=== PATIENT | male | born 1955 | race Caucasian/White ===

== ENCOUNTER → 2019-03-26 | Outpatient (CLI) | payer MEDICARE, MEDICAID ==
--- NOTE | 2019-03-26 14:20 | Diagnostic Imaging Report ---
EXAMINATION: Magnetic resonance imaging of the left knee without intravenous contrast DATE: March 26, 2019. COMPARISON: None. INDICATION: 63-year-old male, left knee pain. TECHNIQUE: Multiplanar, multisequence non contrast enhanced MR imaging was accomplished. FINDINGS: MENISCI: There is blunting of the free edge of the posterior horn of the medial meniscus. This potentially could reflect prior partial meniscectomy changes and/or a free edge tear. Recommend correlation with past surgical history. The additional components of the medial meniscus are intact. There is no parameniscal cyst. There is no medial meniscal extrusion. The lateral meniscus is intact. LIGAMENTS AND TENDONS: The anterior and posterior cruciate ligaments are intact. The medial collateral ligament is intact. The iliotibial band, mid third lateral capsular ligament, fibular collateral ligament, biceps femoris tendon and conjoined tendon are intact. The quadriceps tendon and patella ligament are intact. JOINT: There is mild superficial irregularity of the cartilage of the medial and lateral patellar facets. There is mild generalized thinning of the cartilage of the medial compartment. There is a [id number]-[id number] knee joint effusion without identified intra-articular body or prominent synovitis. BONE: There is unremarkable bone marrow signal. Specifically, negative for fracture, osteomyelitis, osteonecrosis, or marrow replacing process. BURSAE AND SOFT TISSUES: There is no Cabezas's cyst. There is nonspecific predominantly anterior, medial, and lateral subcutaneous edema. IMPRESSION: 1. Blunting of the free edge of the posterior horn of the medial meniscus which may potentially reflect prior partial meniscectomy changes and/or free edge tear. Recommend correlation with past surgical history. Additional components of the medial meniscus are intact. There is no parameniscal cyst. There is no medial meniscal extrusion. 2. Intact lateral meniscus. 3. Intact anterior and posterior cruciate ligaments. Additional ligaments and tendons are intact. 4. No acute fracture, bone contusion, or evidence of osteonecrosis. Dictated by: Dictated on workstation # [id number]
== END ==
LOC: RAD 12:04
PROVIDERS: ATTEND Nurse Practitioner
DX: M23.322 Other meniscus derangements, posterior horn of medial meniscus, left knee (principal)
CPT/HCPCS: 73721

== ENCOUNTER 2020-01-30 05:34 | Outpatient (CLI) | payer MEDICARE, MEDICAID ==
[~2020-01-30] VITALS: Ht 180.3 cm; Wt 109.1 kg
[2020-01-30] MEDS ORDERED: PROP80TA3 PO (13:14)
[2020-01-30] MEDS ORDERED: QUIN40TA14 PO (13:14)
[2020-01-30] MEDS ORDERED: VENL100T2 PO (13:14)
[2020-01-30] MEDS ORDERED: BUPR300T43 PO (13:14)
[2020-01-30] MEDS ORDERED: ASPI-999 PO (13:14)
[2020-01-30] MEDS ORDERED: BREX3TAB PO (13:14)
[2020-01-30] MEDS ORDERED: BUPR-42 PO (13:14)
[2020-02-04] MEDS ORDERED: ZOLP5TAB PO (08:41)
[2020-02-06] MEDS ORDERED: HYDR-4226 PO (09:54)
== END 2020-01-30 13:32 ==
LOC: PREOP 05:34
PROVIDERS: ATTEND Surgery
DX: Z01.818 Encounter for other preprocedural examination (principal)

== ENCOUNTER 2020-02-06 07:40 | Day surgery (SDC) | payer MEDICARE, MEDICAID ==
[~2020-02-06] VITALS: Ht 180 cm; Wt 109.1 kg
[2020-02-06] VITALS (9 sets, daily range): BP systolic 108–154; BP diastolic 43–94
[~2020-02-06 07:40] MED LIST: ASPI-999 PO; BREX3TAB PO; BUPR-42 PO; BUPR300T43 PO; PROP80TA3 PO; QUIN40TA14 PO; VENL100T2 PO; ZOLP5TAB PO
[2020-02-06] MEDS ORDERED: LACTATED RINGERS 1,000 ML IV PRN (07:50)
[2020-02-06] MEDS ORDERED: ceFAZolin INJECTION 1,000 MG in WATER (STERILE) FOR INJECTION 10 ML IV ONE (08:00)
--- NOTE | 2020-02-06 08:10 | Progress Note-Pre Operative ---
Pre-Operative Progress Note H&P Reviewed The H&P was reviewed, patient examined and no changes noted. Time Seen by Provider: 08:06 Date H&P Reviewed: Feb 06, 2020 Time H&P Reviewed: 08:07 Pre-Operative Diagnosis: left breast skin mass, side marked JUDSON CAREY DO Feb 06, 2020 08:10
[2020-02-06] MEDS ORDERED: PROPOFOL INJECTION 50 ML IV ONE (08:52)
[2020-02-06] MEDS ORDERED: BUP/EPI 0.25% 1:200,000 (MARCAINE) 30 ML VIAL ONE (08:53)
[2020-02-06] MEDS ORDERED: fentaNYL INJECTION 100 MCG/2 ML AMP ONE (08:53)
[2020-02-06] MEDS ORDERED: MIDAZOLAM 2 MG/2 ML (VERSED) VIAL ONE (08:53)
[2020-02-06] MEDS ORDERED: morphine INJ 10 MG/ML 1ML (SYR OR VIAL) IVP ONE (09:30)
[2020-02-06] MEDS ORDERED: ONDANSETRON 4 MG/2 ML (SDV) Z0FRAN IVP PRN (09:30)
[2020-02-06] MEDS ORDERED: MEPERIDINE (DEMEROL) INJ 50 MG/ML IVP ONE (09:30)
[2020-02-06] MEDS ORDERED: fentaNYL INJECTION 100 MCG/2 ML AMP IVP ONE (09:30)
[2020-02-06] MEDS ORDERED: HYDR-4226 PO (09:54)
--- NOTE | 2020-02-06 09:54 | Progress Note-Post Operative ---
Post-Operative Progess Note Surgeon (s)/Explosives Mixer Operator (s) Surgeon JUDSON CAREY DO Explosives Mixer Operator: AYLIN Ogden Pre-Operative Diagnosis left breast skin mass, side marked Post-Operative Diagnosis same pending path Procedure & Operative Findings Date of Procedure 02/06/20 Procedure Performed/Findings Exc of Left breast skin lesion, 9 x 3cm with undermining for advancement flap Anesthesia Type GET Estimated Blood Loss Estimated blood loss (mL): scant Specimens/Packing Specimens Removed Left breast skin mass JUDSON CAREY DO Feb 06, 2020 09:53
--- NOTE | 2020-02-06 09:55 | Discharge Inst-Surgical ---
Discharge Inst-Surgical Depart Medication/Instructions New, Converted or Re-Newed RX: RX Given to Pt/Family Patient Instructions Follow up Appt: Make appointment for 1 week. [phone] Instructions: No strenuous activity. May shower in 24 hours, no tub bath or soaking. Use incentive spirometer at home as directed. No Smoking Skin/Wound Care: May remove bandages in am. You need to leave the Dermabond on incision it will fall off on it's own. Symptoms to Report: Appetite Changes, Extremity Discoloration, Numbness/Tingling, Swelling Increased, Bleeding Excessive, Eyesight Changes, Pain Increased, Urine Color Corin nge, Constipation(Persistent), Fever over 101 degree F, Pain/Pressure in chest, Urinating Difficulty, Cough Up/Vomit Blood, Heart Beat Irreg/Pounding, Pain/Pressure in jaw, Cramps in feet or legs, Lightheadedness, Pain/Pressure in shoulder, Diarrhea(Persistent), Memory Changes Suddenly, Questions/Concerns, Weight gain consecutive days, Dizziness/Fainting, Nausea/Vomiting, Shortness of Breath, Weight gain over 2 pounds If questions or concerns contact your physician Or seek help at emergency department. Activity Activity as Tolerated: Yes Activity Instructions: Avoid Stress to Incision Driving Instructions: No Driving/Refer to Dr. Solo Discharge Diet: No Restrictions Diet After 24 Hours: Clear Liquid if Nauseous If Any Problems/Questions/Issu: Contact Your Physician Skin/Wound Care Infection Signs and Symptoms: Increased Redness, Foul Odor of Wound, Increased Drainage, Skin Itchy or Has a Rash, Increased Swelling, Temperature Above 101 F Bathing Instructions: Shower Stitches/[place]/Dermabond Dis: Dermabond Ice Pack: Ice On and Off Site (as needed for pain) JUDSON CAREY DO Feb 06, 2020 09:55
[2020-02-06] MEDS ORDERED: ATROPINE INJ 0.4 MG/ML SDV ONE (10:00)
[2020-02-06] MEDS ORDERED: SUCCINYLCHOLINE INJ 100 MG/5 ML SYR/VIAL ONE (10:00)
[2020-02-06] MEDS ORDERED: ONDANSETRON 4 MG/2 ML (SDV) Z0FRAN ONE (10:00)
[2020-02-06] MEDS ORDERED: SEVOFLURANE (ULTANE) 15 ML INHAL SOLN ONE (10:00)
[2020-02-06] MEDS ORDERED: PHENYLEPHRINE 100 MCG/ML 10 ML (ANESTHESIA) SYR ONE (10:00)
[2020-02-06] MEDS ORDERED: GLYCOPYRROLATE 0.2 MG/ML (ROBINUL) 2 ML VIAL ONE (10:00)
--- NOTE | 2020-02-06 11:08 | Anesthesia-General Post-Op ---
General Patient Condition Mental Status/LOC: Same as Preop Cardiovascular: Satisfactory Nausea/Vomiting: Absent Respiratory: Satisfactory Pain: Controlled Complications: Absent Post Op Complications Complications None Follow Up Care/Instructions Patient Instructions None needed. Anesthesia/Patient Condition Patient Condition Patient is doing well, no complaints, stable vital signs, no apparent adverse anesthesia problems. No complications reported per nursing. TOMASA OCAMPO CRNA Feb 06, 2020 11:08
[2020-02-06] MEDS ORDERED: HYDROcodone/APAP 5 MG/325 MG (LORTAB) TAB ONE (11:13)
[2020-02-06] MEDS ORDERED: HYDROcodone/APAP 5 MG/325 MG (LORTAB) TAB PO ONE (11:30)
--- NOTE | 2020-02-06 21:54 | OPERATIVE REPORT ---
DATE OF SERVICE: PREOPERATIVE DIAGNOSIS: Left breast skin mass. POSTOPERATIVE DIAGNOSIS: Left breast skin mass, pending pathology. PROCEDURE: Excision of left breast skin mass, 9.9 x 3 cm incision with undermining to create advancement flaps and closed in two layers. SURGEON: Aravind Rodriguez DO BILLING TYPIST: Randee Cordero MS3. ANESTHESIA: General endotracheal tube. SPECIMEN: Left mass with skin tissue. BLOOD LOSS: Scant. FLUIDS: Per anesthesia. POSTOPERATIVE CONDITION: Stable. INDICATION FOR PROCEDURE: The patient is a 64-year-old male, who has a mass on his left breast as it came up suddenly, needed to get this removed. FINDINGS: The patient had a left skin mass on the left breast removed. It looked like it may have been coming from the nevus, so a wide local excision was done trying to go 1 cm outside of this, making a 9 x 3 cm incision. PROCEDURE NOTE: After informed consent was obtained, the patient was brought to the operating room, placed on the table in supine position, sterilely prepped and draped in normal fashion. Local lidocaine was used to infiltrate the area, had drawn elliptical incision around this mass, trying to go 1 cm outside, what looked like a nevus, thus creating a 9 x 3 incision that was vertical transverse across the left breast just above the inframammary fold. Injected with local and then made an incision with #15 blade, carried down through the skin into subcutaneous tissue and then deepened down to subcutaneous tissue with Bovie electrocautery, going around, removing this area en bloc, suturing at the 12 o'clock and 3 o'clock position to orient it. Then, hemostasis obtained using Bovie electrocautery. Copiously irrigated with normal saline, created advancement flaps underneath the superior and inferior aspect of the tissue about 1.5 cm along both sides, to be able to bring this together, then closed this in two layers, closing the deep layer with 3-0 Vicryl three interrupted sutures, then closed actually a subcutaneous layer with 3-0 Vicryl four interrupted sutures, then closed the skin with a 4-0 undyed Monocryl in a running subcuticular fashion. Area was cleaned and dried and skin Affix was placed as well as a pressure dressing. The patient tolerated the procedure. He was transferred to recovery room in stable condition. Sponge, instrument and needle count correct at the end of the case. Job ID: [id number] DocumentID: [id number] Dictated Date: 02/06/2020 13:56:24 Exercise Specialist Date: 02/06/2020 21:53:38 Dictated By: ARAVIND RODRIGUEZ DO
== END 2020-02-06 11:55 | disposition home or self-care (01) ==
LOC: SDC 07:40
PROVIDERS: ATTEND Surgery
DX: C50.922 Malignant neoplasm of unspecified site of left male breast (principal); I10 Essential (primary) hypertension; G47.33 Obstructive sleep apnea (adult) (pediatric); F32.9 Major depressive disorder, single episode, unspecified; E66.9 Obesity, unspecified; Z68.33 Body mass index [BMI] 33.0-33.9, adult; Z79.82 Long term (current) use of aspirin; Z79.899 Other long term (current) drug therapy; Z87.891 Personal history of nicotine dependence; Z80.9 Family history of malignant neoplasm, unspecified
CPT/HCPCS: 87081; 88305

== ENCOUNTER → 2020-02-18 | Outpatient (CLI) | payer MEDICARE, MEDICAID ==
[~2020-02-18] MED LIST changes: +HYDR-4226 PO
--- NOTE | 2020-02-18 16:09 | Diagnostic Imaging Report ---
INDICATION: Malignant melanoma, initial staging. Serum blood glucose level at the time of injection is 109 mg/dL. The patient was administered 13.3 mCi F18-FDG intravenously in the right forearm and whole body PET imaging was performed. Noncontrast CT was performed for attenuation correction and anatomic correlation. No prior imaging is available for comparison. There is symmetric activity throughout the brain. The soft tissues of the neck are unremarkable. No definite hypermetabolic foci within the mediastinum or maria isabel is identified. No pulmonary parenchymal hypermetabolism is identified. The abdomen and pelvis demonstrates physiologic activity throughout the gastrointestinal and genitourinary tracts. No suspicious hypermetabolism is identified. Lower extremities are unremarkable. IMPRESSION: Unremarkable whole body PET/CT study. Dictated by: Dictated on workstation # [id number]
== END ==
LOC: RAD 11:45
PROVIDERS: ATTEND Surgery
DX: C43.52 Malignant melanoma of skin of breast (principal)
CPT/HCPCS: 78816; A9552

== ENCOUNTER 2020-03-09 05:36 | Outpatient (RCR) | payer MEDICARE, MEDICAID ==
[~2020-03-09] VITALS: Ht 177.8 cm; Wt 108.6 kg
[~2020-03-09 05:36] MED LIST changes: +DESV100T PO
[2020-03-11] MEDS ORDERED: HYDR-4226 PO (12:26)
== END 2020-03-09 14:46 | disposition home or self-care (01) ==
LOC: PREOP 05:36
PROVIDERS: ATTEND Surgery
DX: Z01.812 Encounter for preprocedural laboratory examination (principal); Z20.828 Contact with and (suspected) exposure to other viral communicable diseases
CPT/HCPCS: 87635

== ENCOUNTER 2020-03-11 06:04 | Day surgery (SDC) | payer MEDICARE, MEDICAID ==
[~2020-03-11] VITALS: Ht 177 cm; Wt 108.6 kg
[2020-03-11] VITALS (10 sets, daily range): BP systolic 102–166; BP diastolic 54–100
[2020-03-11] MEDS ORDERED: ceFAZolin 2 GM IV Premixed 50 ML IV ONE (06:15)
[2020-03-11] MEDS ORDERED: ceFAZolin 2 GM IV Premixed 50 ML ONE (07:03)
[2020-03-11] MEDS: LACTATED RINGERS 1,000 ML IV PRN ×2 (08:10→10:42)
--- NOTE | 2020-03-11 08:21 | Progress Note-Pre Operative ---
Pre-Operative Progress Note H&P Reviewed The H&P was reviewed, patient examined and no changes noted. Time Seen by Provider: 08:15 Date H&P Reviewed: Mar 11, 2020 Time H&P Reviewed: 08:15 Pre-Operative Diagnosis: Left breast melanoma, site marked JUDSON CAREY DO Mar 11, 2020 08:21
--- NOTE | 2020-03-11 09:17 | Diagnostic Imaging Report ---
INDICATION: Malignant melanoma. FINDINGS: Injection of technetium 99M agent was performed in four separate aliquots around the lesion in the left lateral chest wall subcutaneous tissues and imaging over the chest was performed. Images demonstrate migration of activity into the left axilla. This was marked on the patient's skin. IMPRESSION: Lymphoscintigraphy of the left chest for identification of sentinel node. Dictated by: Dictated on workstation # [id number]
[2020-03-11] MEDS ORDERED: SEVOFLURANE (ULTANE) 15 ML INHAL SOLN ONE ×4 (10:34→12:16)
[2020-03-11] MEDS ORDERED: ONDANSETRON 4 MG/2 ML (SDV) Z0FRAN ONE (10:34)
[2020-03-11] MEDS ORDERED: proPOfol 200 MG/20 ML (DIPRIVAN) VIAL IV ONE (10:34)
[2020-03-11] MEDS ORDERED: fentaNYL INJECTION 100 MCG/2 ML AMP ONE (10:34)
[2020-03-11] MEDS ORDERED: LIDOCAINE PF 2% 5 ML (XYLOCAINE) VIAL ONE (10:34)
[2020-03-11] MEDS ORDERED: MIDAZOLAM 2 MG/2 ML (VERSED) VIAL ONE (10:34)
[2020-03-11] MEDS ORDERED: METHYLENE BLUE 0.5% (PROVAYBLUE) 50 mg/10 ml vial IV ONE (10:41)
[2020-03-11] MEDS ORDERED: BUP/EPI 0.5% 1:200,000 (SENSORCAINE) 30 ML VIAL ONE (10:41)
--- NOTE | 2020-03-11 12:25 | Progress Note-Post Operative ---
Post-Operative Progess Note Surgeon (s)/Blind Cleaner (s) Surgeon JUDSON CAREY DO Blind Cleaner: MEG Castro Pre-Operative Diagnosis Left breast melanoma, site marked Post-Operative Diagnosis same pending path Procedure & Operative Findings Date of Procedure 03/11/20 Procedure Performed/Findings 1) Wide local excision of melanoma - 10 x 2.6 2. [place] Lymph node biopsy 3) Injection of blue dye Anesthesia Type LMA Estimated Blood Loss Estimated blood loss (mL): scant Specimens/Packing Specimens Removed 1) left breast skin wide local excision 2) sentinel lymph node 1&2 JUDSON CAREY DO Mar 11, 2020 12:25
[2020-03-11] MEDS ORDERED: HYDR-4226 PO (12:26)
--- NOTE | 2020-03-11 12:27 | Discharge Inst-Surgical ---
Discharge Inst-Surgical Depart Medication/Instructions New, Converted or Re-Newed RX: RX Given to Pt/Family Patient Instructions Follow up Appt: Make appointment for 1 week. [phone] Instructions: No lifting greater than 20 pounds. No strenuous activity. May shower in 24 hours, no tub bath or soaking. Use incentive spirometer at home as directed. No Smoking Skin/Wound Care: May remove bandages in am. You need to leave the Dermabond on incision it will fall off on it's own. Symptoms to Report: Appetite Changes, Extremity Discoloration, Numbness/Tingling, Swelling Increased, Bleeding Excessive, Eyesight Changes, Pain Increased, Urine Color Change, Constipation(Persistent), Fever over 101 degree F, Pain/Pressure in chest, Urinating Difficulty, Cough Up/Vomit Blood, Heart Beat Irreg/Pounding, Pain/Pressure in jaw, Cramps in feet or legs, Lightheadedness, Pain/Pressure in shoulder, Diarrhea(Persistent), Memory Changes Suddenly, Questions/Concerns, Weight gain consecutive days, Dizziness/Fainting, Nausea/Vomiting, Shortness of Breath, Weight gain over 2 pounds If questions or concerns contact your physician Or seek help at emergency department. Activity Activity Instructions: Avoid Stress to Incision Driving Instructions: No Driving/Refer to Dr. Solo Discharge Diet: No Restrictions Diet After 24 Hours: Clear Liquid if Nauseous If Any Problems/Questions/Issu: Contact Your Physician, Go to Emergency Room Skin/Wound Care Infection Signs and Symptoms: Increased Redness, Foul Odor of Wound, Increased Drainage, Skin Itchy or Has a Rash, Increased Swelling, Temperature Above 101 F Bathing Instructions: Shower Stitches/[place]/Dermabond Dis: Dermabond Ice Pack: Ice On and Off Site JUDSON CAREY DO Mar 11, 2020 12:27
[2020-03-11] MEDS ORDERED: GLYCOPYRROLATE 0.2 MG/ML (ROBINUL) 2 ML VIAL ONE (12:28)
[2020-03-11] MEDS ORDERED: fentaNYL INJECTION 100 MCG/2 ML AMP IVP ONE (12:45)
[2020-03-11] MEDS ORDERED: morphine INJ 10 MG/ML 1ML (SYR OR VIAL) IVP ONE (12:45)
[2020-03-11] MEDS ORDERED: ONDANSETRON 4 MG/2 ML (SDV) Z0FRAN IVP PRN (12:45)
--- NOTE | 2020-03-11 13:21 | Anesthesia-General Post-Op ---
General Patient Condition Mental Status/LOC: Same as Preop Cardiovascular: Satisfactory Nausea/Vomiting: Absent Respiratory: Satisfactory Pain: Controlled Complications: Absent Post Op Complications Complications None Follow Up Care/Instructions Patient Instructions None needed. Anesthesia/Patient Condition Patient Condition Patient is doing well, no complaints, stable vital signs, no apparent adverse anesthesia problems. No complications reported per nursing. RYAN AGUILAR CRNA Mar 11, 2020 13:21
--- NOTE | 2020-03-11 14:08 | NUR ---
THIS RN PHONED DR. CAREY TO GET PATIENT PAIN MEDICATION. TELEPHONE ORDER FOR 1 TABLET LORTAB 5/325 ONCE. THIS RN INFORMED SCRIPTS NEEDS SIGNED WELL. DR. JASON WOULD BE AT OFFICE FOR NEXT 1-2 HOUR AND TO HAVE BRING OVER.
[2020-03-11] MEDS ORDERED: HYDROcodone/APAP 5 MG/325 MG (LORTAB) TAB ONE (14:15)
[2020-03-11] MEDS ORDERED: HYDROcodone/APAP 5 MG/325 MG (LORTAB) TAB PO ONE (14:15)
--- NOTE | 2020-03-11 14:50 | NUR ---
AFTER HELPING GET PATIENT DRESSED AND READY FOR DISCHARGE, PT NOTIFED HE FELT SOMETHING WET. UPON FURTHER INVESTIGATION, HIS LEFT BREAST INCISION HAD A DROP OF BLOOD SEEPING FROM IT. I HAD CARLOS JOHNSON COME AND EVALUATE IT WITH ME AND I PLACED A 4X4 GAUZE OVER THE SITE AND ADVISED PT THAT HE CAN REMOVE THE BANDAGE LATER THIS EVENING OR 24 HOURS FROM NOW. PT VOICED HE UNDERSTOOD WITH NO FURTHER QUESTIONS OR CONCERNS.
--- NOTE | 2020-03-11 23:30 | OPERATIVE REPORT ---
DATE OF SERVICE: 03/11/2020 PREOPERATIVE DIAGNOSIS: Melanoma of the left breast skin. POSTOPERATIVE DIAGNOSIS: Melanoma of the left breast skin, pending pathology. PROCEDURES: 1. Wide local excision 10 cm x 2.6 cm. 2. [place] lymph node biopsy. 3. Injection of methylene blue dye. SURGEON: Aravind Rodriguez DO MEDICAL RECORDS MANAGER: Shama Latham MS4. SPECIMEN: 1. Wide local excision of skin measuring 10 cm x 2.6 cm marked superiorly with a short stitch and laterally with a long stitch as well. 2. [place] lymph node 1 and 2. BLOOD LOSS: Scant. FLUIDS: Per anesthesia. POSTOPERATIVE CONDITION: Stable. INDICATION FOR PROCEDURE: The patient is a 64-year-old male who had a melanoma that was down to 4 mm. He only had 0.8 cm margins, needed 2 cm margins and he needed a sentinel lymph node biopsy. FINDINGS: The patient had a wide local excision, he had sentinel lymph node. The Neoprobe was 1676 at injection site. 581 over lymph node site. In-vivo was 126 and then ex-vivo for lymph node #1, sentinel node #1 was 187 and ex-vivo for sentinel node #2 was 84. PROCEDURE NOTE: After informed consent was obtained, the patient was first sent to the radiology for a lymphoscintigraphy. He was then brought back down to the PACU and then brought to the operating room. He was placed on table in supine position and a timeout was performed. Site had been marked left side, everyone agreed. Radiology had also marked where that looked like a sentinel lymph node was. At this point, then injected methylene blue around the nipple and areola, half mL at 12, 3, 6, and 9 o'clock position and then massaged this into place for 5 minutes. He was then sterilely prepped and draped in normal fashion. Started by doing a wide local excision going an extra 1.3 cm outside of the previous incision, right middle of the previous incision to get 2 cm margins. First infiltrated with local, then made an incision #15 blade, carried down to skin into subcutaneous tissue, deepened down to subcutaneous tissue with Bovie electrocautery and subcutaneous tissue. Removed this elliptical incision en bloc and measured 10 cm x 2.6 cm. At this point, then did some undermining with Bovie electrocautery to be able to bring the tissue back together undermined superiorly and inferiorly. Hemostasis obtained using Bovie electrocautery. Copiously irrigated with sterile water and then elected to close the incision in 2 layers, closing the subcutaneous tissue with a 2-0 Vicryl approximately 8 interrupted sutures to bring the skin closed together and then closed the skin with a running 4-0 undyed Monocryl subcuticular stitch. Area was cleaned and dried and then placed a blue towel, changed gloves and switched set up to do a clean setup and then started the sentinel node biopsy. We had previously used the Neoprobe prior to doing the prep and 676 injection site. 581 over the lymph node, infiltrated under the lateral aspect of the pectoralis major muscle right above the axilla and then made an incision with #15 blade, carried down through the skin and subcutaneous tissue, deepened down to subcutaneous tissue with Bovie electrocautery, going down into the axillary fat packet, saw some blue going through the lymphatic channels and then saw what looked like a blue lymph node. It measured 126 in-vivo, grasped with [place], cut this out with Bovie electrocautery. There was 187 ex-vivo, saw what looked like another blue lymph node and it also measured 84 ex-vivo, removed by grasping with a [place] and then cutting out with Bovie electrocautery. At this point, the Neoprobe started malfunctioning and everyone reported including towards the patient's head was getting high readings. I did not see any more blue lymph nodes. So, at this point, we then elected to stop. Copiously irrigated with sterile water, suctioned this out. Hemostasis was obtained and then closed the skin with 4-0 undyed Monocryl 4 interrupted subcuticular stitches. Area was cleaned and dried. Dermabond placed over both incisions. The patient tolerated the procedure and he was then transferred to recovery room in stable condition. Sponge, instrument and needle count correct at the end of the case. Job ID: [id number] DocumentID: [id number] Dictated Date: 03/11/2020 14:49:36 Nurses Educator Date: 03/11/2020 23:29:20 Dictated By: ARAVIND RODRIGUEZ DO
== END 2020-03-11 14:50 ==
LOC: SDC 06:04
PROVIDERS: ATTEND Surgery
DX: C43.52 Malignant melanoma of skin of breast (principal); I10 Essential (primary) hypertension; F32.9 Major depressive disorder, single episode, unspecified; E66.9 Obesity, unspecified; Z68.34 Body mass index [BMI] 34.0-34.9, adult; Z79.82 Long term (current) use of aspirin; Z79.899 Other long term (current) drug therapy; Z87.891 Personal history of nicotine dependence; Z80.9 Family history of malignant neoplasm, unspecified
CPT/HCPCS: 19120; 38500; 78195; 87081; A9541

== ENCOUNTER 2020-03-17 14:26 | Outpatient (RCR) | payer MEDICARE, MEDICAID ==
[2020-03-02 08:58] LABS: BASOPHILS # (AUTO) 0.1 10^3/uL (0.0-0.1); BASOPHILS % (AUTO) 1 % (0-10); EOSINOPHILS # (AUTO) 0.2 10^3/uL (0.0-0.3); EOSINOPHILS % (AUTO) 2 % (0-10); HEMATOCRIT 41 % (40-54); HEMOGLOBIN 14.3 g/dL (13.3-17.7); LYMPHOCYTES # (AUTO) 2.4 10^3/uL (1.0-4.0); LYMPHOCYTES % (AUTO) 31 % (12-44); MEAN CORPUSCULAR HEMOGLOBIN 32 pg (25-34); MEAN CORPUSCULAR HGB CONC 35 g/dL (32-36); MEAN CORPUSCULAR VOLUME 92 fL (80-99); MEAN PLATELET VOLUME 9.5 fL (9.0-12.2); MONOCYTES # (AUTO) 0.8 10^3/uL (0.0-1.0); MONOCYTES % (AUTO) 11 % (0-12); NEUTROPHILS # (AUTO) 4.3 10^3/uL (1.8-7.8); NEUTROPHILS % (AUTO) 55 % (42-75); PLATELET COUNT 332 10^3/uL (130-400); WHITE BLOOD COUNT 7.8 10^3/uL (4.3-11.0)
[2020-03-02 09:18] LABS: ALANINE AMINOTRANSFERASE 25 U/L (0-55); ALBUMIN 3.9 GM/DL (3.2-4.5); ALKALINE PHOSPHATASE 89 U/L (40-136); BILIRUBIN,TOTAL 0.6 MG/DL (0.1-1.0); BUN/CREATININE RATIO 13; CALCIUM 8.6 MG/DL (8.5-10.1); CARBON DIOXIDE 23 MMOL/L (21-32); CHLORIDE 100 MMOL/L (98-107); CREATININE SERUM 0.95 MG/DL (0.60-1.30); GFR ESTIMATED > 60; GLUCOSE 108 MG/DL (70-105); POTASSIUM 4.1 MMOL/L (3.6-5.0); SODIUM 133 MMOL/L (135-145); TOTAL PROTEIN 6.9 GM/DL (6.4-8.2)
== END 2020-05-31 | disposition home or self-care (01) ==
LOC: ONC 14:26
PROVIDERS: ATTEND Internal Medicine Hematology & Oncology
DX: C43.9 Malignant melanoma of skin, unspecified (principal); C43.52 Malignant melanoma of skin of breast; I10 Essential (primary) hypertension; Z90.89 Acquired absence of other organs
CPT/HCPCS: 80053; 83615; 85025; G0463; 99213; 99214

== ENCOUNTER → 2020-08-31 | Outpatient (CLI) | payer MEDICARE, MEDICAID ==
[~2020-08-31] MED LIST changes: +CATHETER FLUSH 10 ML SYR IV PRN; +HOLD METFORMIN - RECEIVED CONTRAST 20 ML VIAL IV SCH; +IOHEXOL 350 MG/ML 100 ML (OMNIPAQUE 350) VIAL IV ONE; +NS 100 ML (IVPB) BAG IV ONE
--- NOTE | 2020-08-31 12:54 | Diagnostic Imaging Report ---
PROCEDURE: CT chest and abdomen with contrast. TECHNIQUE: Multiple contiguous axial images were obtained through the chest and abdomen after the administration of intravenous contrast. Auto Exposure Controls were utilized during the CT exam to meet ALARA standards for radiation dose reduction. INDICATION:Melanoma. COMPARISON: Exam correlated with metabolic PET CT 02/18/2020. No other comparison. FINDINGS: CHEST: No chest wall mass or fluid collection. No lung nodule or dominant lung mass. No thoracic adenopathy. No effusion or pneumothorax. No evidence for fractures. The retrocardiac hiatal hernia is chronic. Supraclavicular fossae where visualized appeared unremarkable. No suspicious lytic or sclerotic bony lesion. Liver shows features of fatty infiltration. No identifiable mass. The gallbladder and bile ducts are negative. The adrenals are negative. The spleen is normal. Pancreas is negative. The kidneys are unobstructed. There is no mesenteric or retroperitoneal adenopathy. No ascites. No suspicious lytic or sclerotic bony lesion. IMPRESSION: Unremarkable CT chest and abdomen. Dictated by: Dictated on workstation # [id number]
== END ==
LOC: RAD 10:37
PROVIDERS: ATTEND Internal Medicine Hematology & Oncology
DX: C76.1 Malignant neoplasm of thorax (principal)
CPT/HCPCS: 71260; 74160

== ENCOUNTER 2020-09-07 14:45 | Outpatient (RCR) | payer MEDICARE, MEDICAID ==
[2020-06-15 15:09] LABS: BASOPHILS # (AUTO) 0.1 10^3/uL (0.0-0.1); BASOPHILS % (AUTO) 1 % (0-10); EOSINOPHILS # (AUTO) 0.2 10^3/uL (0.0-0.3); EOSINOPHILS % (AUTO) 3 % (0-10); HEMATOCRIT 40 % (40-54); HEMOGLOBIN 14.2 g/dL (13.3-17.7); LYMPHOCYTES # (AUTO) 2.6 10^3/uL (1.0-4.0); LYMPHOCYTES % (AUTO) 35 % (12-44); MEAN CORPUSCULAR HEMOGLOBIN 32 pg (25-34); MEAN CORPUSCULAR HGB CONC 35 g/dL (32-36); MEAN CORPUSCULAR VOLUME 91 fL (80-99); MEAN PLATELET VOLUME 9.1 fL (9.0-12.2); MONOCYTES # (AUTO) 0.4 10^3/uL (0.0-1.0); MONOCYTES % (AUTO) 5 % (0-12); NEUTROPHILS # (AUTO) 4.2 10^3/uL (1.8-7.8); NEUTROPHILS % (AUTO) 57 % (42-75); PLATELET COUNT 330 10^3/uL (130-400); WHITE BLOOD COUNT 7.4 10^3/uL (4.3-11.0)
[2020-06-15 15:27] LABS: ALANINE AMINOTRANSFERASE 25 U/L (0-55); ALBUMIN 3.8 GM/DL (3.2-4.5); ALKALINE PHOSPHATASE 76 U/L (40-136); BILIRUBIN,TOTAL 0.4 MG/DL (0.1-1.0); BUN/CREATININE RATIO 11; CALCIUM 8.7 MG/DL (8.5-10.1); CARBON DIOXIDE 23 MMOL/L (21-32); CHLORIDE 97 MMOL/L (98-107); CREATININE SERUM 0.83 MG/DL (0.60-1.30); GFR ESTIMATED > 60; GLUCOSE 157 MG/DL (70-105); SODIUM 128 MMOL/L (135-145); TOTAL PROTEIN 6.9 GM/DL (6.4-8.2)
[2020-08-31 10:44] LABS: BASOPHILS # (AUTO) 0.1 10^3/uL (0.0-0.1); BASOPHILS % (AUTO) 1 % (0-10); EOSINOPHILS # (AUTO) 0.1 10^3/uL (0.0-0.3); EOSINOPHILS % (AUTO) 2 % (0-10); HEMATOCRIT 43 % (40-54); HEMOGLOBIN 15.1 g/dL (13.3-17.7); LYMPHOCYTES # (AUTO) 2.8 10^3/uL (1.0-4.0); LYMPHOCYTES % (AUTO) 38 % (12-44); MEAN CORPUSCULAR HEMOGLOBIN 32 pg (25-34); MEAN CORPUSCULAR HGB CONC 35 g/dL (32-36); MEAN CORPUSCULAR VOLUME 92 fL (80-99); MEAN PLATELET VOLUME 9.1 fL (9.0-12.2); MONOCYTES # (AUTO) 0.6 10^3/uL (0.0-1.0); MONOCYTES % (AUTO) 8 % (0-12); NEUTROPHILS # (AUTO) 3.9 10^3/uL (1.8-7.8); NEUTROPHILS % (AUTO) 51 % (42-75); PLATELET COUNT 335 10^3/uL (130-400); WHITE BLOOD COUNT 7.6 10^3/uL (4.3-11.0)
[2020-08-31 10:59] LABS: ALANINE AMINOTRANSFERASE 29 U/L (0-55); ALKALINE PHOSPHATASE 79 U/L (40-136); BILIRUBIN,TOTAL 0.5 MG/DL (0.1-1.0); BUN/CREATININE RATIO 9; CALCIUM 8.8 MG/DL (8.5-10.1); CARBON DIOXIDE 25 MMOL/L (21-32); CHLORIDE 98 MMOL/L (98-107); CREATININE SERUM 0.88 MG/DL (0.60-1.30); GFR ESTIMATED > 60; GLUCOSE 105 MG/DL (70-105); POTASSIUM 4.8 MMOL/L (3.6-5.0); SODIUM 129 MMOL/L (135-145)
[~2020-09-07 14:45] MED LIST changes: -CATHETER FLUSH 10 ML SYR IV PRN; -HOLD METFORMIN - RECEIVED CONTRAST 20 ML VIAL IV SCH; -IOHEXOL 350 MG/ML 100 ML (OMNIPAQUE 350) VIAL IV ONE; -NS 100 ML (IVPB) BAG IV ONE
== END 2020-09-13 | disposition home or self-care (01) ==
LOC: ONC 14:45
PROVIDERS: ATTEND Internal Medicine Hematology & Oncology
DX: C76.1 Malignant neoplasm of thorax (principal); C43.52 Malignant melanoma of skin of breast; I10 Essential (primary) hypertension; Z90.89 Acquired absence of other organs
CPT/HCPCS: 80053; 83615; 85025; G0463; 99213

== ENCOUNTER → 2020-12-04 | Outpatient (CLI) | payer MEDICARE, MEDICAID ==
[~2020-12-04] MED LIST changes: +HOLD METFORMIN - RECEIVED CONTRAST 20 ML VIAL IV SCH; +IOHEXOL 350 MG/ML 100 ML (OMNIPAQUE 350) VIAL IV ONE; +NS 100 ML (IVPB) BAG IV ONE
[2020-12-04] MEDS: CATHETER FLUSH 10 ML SYR IV PRN ×2 (10:37→11:22)
--- NOTE | 2020-12-04 13:19 | Diagnostic Imaging Report ---
EXAMINATION: CT chest and abdomen with intravenous contrast. TECHNIQUE: Multiple contiguous axial images were obtained through the chest and abdomen after the uneventful administration of intravenous contrast. All CT scans use one or more of the following dose optimizing techniques: automated exposure control, MA and/or KvP adjustment based on patient size and exam type or iterative reconstruction. HISTORY: Malignant neoplasm of the thorax COMPARISON: 08/31/2020 FINDINGS: There is no edema or pneumonia. No pleural effusion. No pneumothorax. There is unchanged 9 mm perifissural nodule on the right. This is unchanged from 02/18/2020. There is no axillary or supraclavicular lymphadenopathy. There is no mediastinal lymphadenopathy. Heart size is normal. There are mild coronary artery calcifications. No pericardial effusion. Aorta is normal in caliber. The liver is normal without focal lesion. There is no biliary ductal dilation. Gallbladder is normal. Pancreas is normal. Spleen is normal. Adrenal glands are normal. The kidneys are normal. There is no hydronephrosis. Visualized bowel is normal in caliber without obstruction or inflammation. There is a small hiatal hernia. No free fluid or air. No abdominal lymphadenopathy. Aorta is normal in caliber without aneurysm. There are no suspicious osseus lesions. IMPRESSION: 1. No metastatic disease seen in the chest, abdomen or pelvis. Dictated by: Dictated on workstation # [id number]
--- NOTE | 2020-12-04 15:43 | Diagnostic Imaging Report ---
INDICATION: Melanoma. TECHNIQUE: Patient was administered 26.1 mCi technetium 99m MDP intravenously and whole body imaging was performed after a three-hour delay. COMPARISON: No prior bone scans are available for comparison. FINDINGS: There is normal uptake of activity by the axial and appendicular skeleton. There is uptake by both kidneys with excretion into the urinary bladder. There appears to be some degenerative uptake in the left knee. No suspicious foci are identified to suggest osseous metastatic disease. IMPRESSION: No scintigraphic evidence of osseous metastatic disease. Dictated by: Dictated on workstation # [id number]
== END ==
LOC: CARD 10:26
PROVIDERS: ATTEND Internal Medicine Hematology & Oncology
DX: C76.1 Malignant neoplasm of thorax (principal)
CPT/HCPCS: 71260; 74160; 78306; A9503

== ENCOUNTER 2020-12-10 14:14 | Outpatient (RCR) | payer MEDICARE, MEDICAID ==
[2020-12-04 10:20] LABS: BASOPHILS # (AUTO) 0.1 10^3/uL (0.0-0.1); BASOPHILS % (AUTO) 1 % (0-10); EOSINOPHILS # (AUTO) 0.2 10^3/uL (0.0-0.3); EOSINOPHILS % (AUTO) 2 % (0-10); HEMATOCRIT 40 % (40-54); HEMOGLOBIN 13.8 g/dL (13.3-17.7); LYMPHOCYTES # (AUTO) 2.7 10^3/uL (1.0-4.0); LYMPHOCYTES % (AUTO) 36 % (12-44); MEAN CORPUSCULAR HEMOGLOBIN 33 pg (25-34); MEAN CORPUSCULAR HGB CONC 35 g/dL (32-36); MEAN CORPUSCULAR VOLUME 94 fL (80-99); MEAN PLATELET VOLUME 9.5 fL (9.0-12.2); MONOCYTES # (AUTO) 0.6 10^3/uL (0.0-1.0); MONOCYTES % (AUTO) 8 % (0-12); NEUTROPHILS # (AUTO) 3.9 10^3/uL (1.8-7.8); NEUTROPHILS % (AUTO) 52 % (42-75); PLATELET COUNT 283 10^3/uL (130-400); WHITE BLOOD COUNT 7.4 10^3/uL (4.3-11.0)
[2020-12-04 10:38] LABS: ALANINE AMINOTRANSFERASE 39 U/L (0-55); ALBUMIN 3.9 GM/DL (3.2-4.5); ALKALINE PHOSPHATASE 79 U/L (40-136); BILIRUBIN,TOTAL 0.6 MG/DL (0.1-1.0); BUN/CREATININE RATIO 8; CALCIUM 9.2 MG/DL (8.5-10.1); CARBON DIOXIDE 28 MMOL/L (21-32); CHLORIDE 96 MMOL/L (98-107); CREATININE SERUM 0.86 MG/DL (0.60-1.30); GFR ESTIMATED > 60; GLUCOSE 109 MG/DL (70-105); POTASSIUM 4.7 MMOL/L (3.6-5.0); SODIUM 131 MMOL/L (135-145); TOTAL PROTEIN 6.8 GM/DL (6.4-8.2)
[~2020-12-10 14:14] MED LIST changes: -HOLD METFORMIN - RECEIVED CONTRAST 20 ML VIAL IV SCH; -IOHEXOL 350 MG/ML 100 ML (OMNIPAQUE 350) VIAL IV ONE; -NS 100 ML (IVPB) BAG IV ONE
== END 2020-12-16 07:51 | disposition home or self-care (01) ==
LOC: ONC 14:14
PROVIDERS: ATTEND Internal Medicine Hematology & Oncology
DX: C76.1 Malignant neoplasm of thorax (principal); I10 Essential (primary) hypertension; Z90.89 Acquired absence of other organs
CPT/HCPCS: 80053; 83615; 85025; 99213

== ENCOUNTER → 2021-03-11 | Outpatient (CLI) | payer MEDICARE, MEDICAID ==
[~2021-03-11] MED LIST changes: +BARIUM SUSPENSION 2.1% (VANILLA SILQ) 450 ML PO ONE; +CATHETER FLUSH 10 ML SYR IV PRN; +HOLD METFORMIN - RECEIVED CONTRAST 20 ML VIAL IV SCH; +IOHEXOL 350 MG/ML 100 ML (OMNIPAQUE 350) VIAL IV ONE; +NS 100 ML (IVPB) BAG IV ONE
[2021-03-11] MEDS: CATHETER FLUSH 10 ML SYR IV PRN ×2 (10:43→11:07)
--- NOTE | 2021-03-11 11:53 | Diagnostic Imaging Report ---
EXAMINATION: CT chest, abdomen and pelvis with intravenous contrast. TECHNIQUE: Multiple contiguous axial images were obtained through the chest, abdomen and pelvis after the uneventful administration of intravenous contrast. All CT scans use one or more of the following dose optimizing techniques: automated exposure control, MA and/or KvP adjustment based on patient size and exam type or iterative reconstruction. HISTORY: Melanoma COMPARISON: 12/04/2020 FINDINGS: There is no edema or pneumonia. No pleural effusion. No pneumothorax. No suspicious nodules. There is stable fissural lymph node on the right measuring 8 mm. There is a stable 3 mm left fissural lymph node. There is no axillary or supraclavicular lymphadenopathy. There is no mediastinal lymphadenopathy. Heart size is normal. There are moderate coronary artery calcifications. No pericardial effusion. Aorta is normal in caliber. The liver is normal without focal lesion. There is no biliary ductal dilation. Gallbladder is normal. Pancreas is normal. Spleen is normal. Adrenal glands are normal. The kidneys are normal. There is no hydronephrosis. Urinary bladder is normal. Visualized bowel is normal in caliber without obstruction or inflammation. There is diverticulosis without diverticulitis. The appendix is normal. Small splenule adjacent to the spleen is again seen. There is a small hiatal hernia. No free fluid or air. No abdominal or pelvic lymphadenopathy. Aorta is normal in caliber without aneurysm. There are no suspicious osseus lesions. There are unchanged mild compression fractures of T12 and L2. IMPRESSION: 1. No metastatic disease is seen in the chest, abdomen or pelvis. Dictated by: Dictated on workstation # [id number]
--- NOTE | 2021-03-11 15:02 | Diagnostic Imaging Report ---
INDICATION: Malignant melanoma of the chest wall. TECHNIQUE: Patient was administered 26.9 mCi technetium 99m MDP intravenously and whole-body imaging was performed after a 3 hour delay. CORRELATION is made with prior whole body bone scan from 12/04/2020. Bone scan appears very similar to study from November. There is degenerative uptake in the left knee. Normal physiologic activity is identified. There is normal uptake by the kidneys with excretion to the urinary bladder. No suspicious foci of uptake are seen to suggest osseous metastatic disease. IMPRESSION: Stable whole body bone scan with no scintigraphic evidence of osseous metastatic disease. Dictated by: Dictated on workstation # [id number]
== END ==
LOC: CARD 11:00
PROVIDERS: ATTEND Internal Medicine Hematology & Oncology
DX: C76.1 Malignant neoplasm of thorax (principal)
CPT/HCPCS: 71260; 74177; 78306; A9503

== ENCOUNTER 2021-03-15 13:20 | Outpatient (RCR) | payer MEDICARE, MEDICAID ==
[2021-03-11 10:13] LABS: BASOPHILS # (AUTO) 0.1 10^3/uL (0.0-0.1); BASOPHILS % (AUTO) 1 % (0-10); EOSINOPHILS # (AUTO) 0.2 10^3/uL (0.0-0.3); EOSINOPHILS % (AUTO) 3 % (0-10); HEMATOCRIT 41 % (40-54); HEMOGLOBIN 14.4 g/dL (13.3-17.7); LYMPHOCYTES # (AUTO) 2.6 10^3/uL (1.0-4.0); LYMPHOCYTES % (AUTO) 33 % (12-44); MEAN CORPUSCULAR HEMOGLOBIN 33 pg (25-34); MEAN CORPUSCULAR HGB CONC 35 g/dL (32-36); MEAN CORPUSCULAR VOLUME 94 fL (80-99); MEAN PLATELET VOLUME 9.2 fL (9.0-12.2); MONOCYTES # (AUTO) 0.6 10^3/uL (0.0-1.0); MONOCYTES % (AUTO) 8 % (0-12); NEUTROPHILS # (AUTO) 4.3 10^3/uL (1.8-7.8); NEUTROPHILS % (AUTO) 55 % (42-75); PLATELET COUNT 283 10^3/uL (130-400); WHITE BLOOD COUNT 7.8 10^3/uL (4.3-11.0)
[2021-03-11 10:31] LABS: ALBUMIN 3.9 GM/DL (3.2-4.5); BILIRUBIN,TOTAL 0.5 MG/DL (0.1-1.0); CALCIUM 9.3 MG/DL (8.5-10.1); CREATININE SERUM 0.89 MG/DL (0.60-1.30); POTASSIUM 4.6 MMOL/L (3.6-5.0); TOTAL PROTEIN 6.9 GM/DL (6.4-8.2)
[~2021-03-15 13:20] MED LIST changes: -BARIUM SUSPENSION 2.1% (VANILLA SILQ) 450 ML PO ONE; -CATHETER FLUSH 10 ML SYR IV PRN; -HOLD METFORMIN - RECEIVED CONTRAST 20 ML VIAL IV SCH; -IOHEXOL 350 MG/ML 100 ML (OMNIPAQUE 350) VIAL IV ONE; -NS 100 ML (IVPB) BAG IV ONE
== END 2021-05-28 | disposition home or self-care (01) ==
LOC: ONC 13:20
PROVIDERS: ATTEND Internal Medicine Hematology & Oncology
DX: C76.1 Malignant neoplasm of thorax (principal)
CPT/HCPCS: 80053; 83615; 85025; 99213

== ENCOUNTER → 2021-06-17 | Outpatient (CLI) | payer MEDICARE, MEDICAID ==
[~2021-06-17] MED LIST changes: +BARIUM SUSPENSION 2.1% (VANILLA SILQ) 450 ML PO ONE; +HOLD METFORMIN - RECEIVED CONTRAST 20 ML VIAL IV SCH; +IOHEXOL 350 MG/ML 100 ML (OMNIPAQUE 350) VIAL IV ONE; +NS 100 ML (IVPB) BAG IV ONE
[2021-06-17] MEDS: CATHETER FLUSH 10 ML SYR IV PRN ×2 (10:27→11:30)
--- NOTE | 2021-06-17 14:30 | Diagnostic Imaging Report ---
PROCEDURE: CT chest with contrast, CT abdomen with and without contrast. TECHNIQUE: Precontrast acquisitions were acquired through the abdomen. Multiple contiguous axial images were obtained through the chest and abdomen after administration of intravenous contrast. Auto Exposure Controls were utilized during the CT exam to meet ALARA standards for radiation dose reduction. INDICATION: Melanoma, follow-up. CORRELATION is made with prior CT from 03/11/2021. CT CHEST: No axillary lymphadenopathy is detected. No mediastinal or hilar lymphadenopathy is detected. No pericardial or pleural fluid is identified. A small nodular density near the fissure in the right lower lobe is noted measuring 9 mm in size. This is stable when compared with prior exam. No other pulmonary parenchymal abnormalities are seen. There are healing fractures involving the anterior right 3rd, 4th, 5th, 6th and 7th ribs. No other bony abnormality is detected. CT ABDOMEN: No focal liver lesion is identified. Gallbladder is unremarkable. There is no biliary ductal dilatation. The pancreas and spleen are unremarkable. No adrenal mass is detected. The kidneys are unremarkable. Aorta is nonaneurysmal. No central, retroperitoneal or mesenteric lymphadenopathy is detected. Small bowel loops are normal caliber. There is no ascites. IMPRESSION: 1. Stable CT of the abdomen and pelvis when compared with prior study from 03/11/2021. There is no evidence of thoracic or abdominal lymphadenopathy or metastatic disease. 2. Right-sided 3rd through 7th healing rib fractures. Dictated by: Dictated on workstation # [id number]
--- NOTE | 2021-06-17 14:46 | Diagnostic Imaging Report ---
INDICATION: Malignant neoplasm of the chest wall. Patient was administered 26.4 mCi technetium 99m MDP intravenously and whole-body imaging was performed after 3 hour delay. Correlation is made with prior whole body bone scan from 03/11/2021. There is normal uptake of activity by the axial and appendicular skeleton. There is uptake by both kidneys with excretion to urinary bladder. Abnormal uptake involving the right 3rd through 7th ribs is noted anteriorly. This does correlate with healing fractures on the CT from the same day. There is some degenerative uptake in the left knee. No suspicious foci are identified to suggest osseous metastatic disease. IMPRESSION: Post traumatic changes to the right 3rd through 7th anterior ribs as well as degenerative changes in the left knee. There is no scintigraphic evidence of osseous metastatic disease. Dictated by: Dictated on workstation # [id number]
== END ==
LOC: CARD 11:00
PROVIDERS: ATTEND Internal Medicine Hematology & Oncology
DX: C76.1 Malignant neoplasm of thorax (principal); S22.41XD Multiple fractures of ribs, right side, subsequent encounter for fracture with routine healing; M17.12 Unilateral primary osteoarthritis, left knee
CPT/HCPCS: 71260; 74170; 78306; A9503

== ENCOUNTER 2021-06-21 10:29 | Outpatient (RCR) | payer MEDICARE, MEDICAID ==
[2021-06-17 10:04] LABS: BASOPHILS # (AUTO) 0.1 10^3/uL (0.0-0.1); BASOPHILS % (AUTO) 1 % (0-10); EOSINOPHILS # (AUTO) 0.2 10^3/uL (0.0-0.3); EOSINOPHILS % (AUTO) 2 % (0-10); HEMATOCRIT 41 % (40-54); HEMOGLOBIN 14.4 g/dL (13.3-17.7); LYMPHOCYTES # (AUTO) 2.3 10^3/uL (1.0-4.0); LYMPHOCYTES % (AUTO) 32 % (12-44); MEAN CORPUSCULAR HEMOGLOBIN 33 pg (25-34); MEAN CORPUSCULAR HGB CONC 35 g/dL (32-36); MEAN CORPUSCULAR VOLUME 95 fL (80-99); MEAN PLATELET VOLUME 9.4 fL (9.0-12.2); MONOCYTES # (AUTO) 0.6 10^3/uL (0.0-1.0); MONOCYTES % (AUTO) 8 % (0-12); NEUTROPHILS % (AUTO) 56 % (42-75); PLATELET COUNT 256 10^3/uL (130-400); WHITE BLOOD COUNT 7.1 10^3/uL (4.3-11.0)
[2021-06-17 10:26] LABS: BILIRUBIN,TOTAL 0.4 MG/DL (0.1-1.0); CALCIUM 9.2 MG/DL (8.5-10.1); CREATININE SERUM 0.92 MG/DL (0.60-1.30); POTASSIUM 4.8 MMOL/L (3.6-5.0); TOTAL PROTEIN 7.1 GM/DL (6.4-8.2)
[~2021-06-21 10:29] MED LIST changes: -BARIUM SUSPENSION 2.1% (VANILLA SILQ) 450 ML PO ONE; -HOLD METFORMIN - RECEIVED CONTRAST 20 ML VIAL IV SCH; -IOHEXOL 350 MG/ML 100 ML (OMNIPAQUE 350) VIAL IV ONE; -NS 100 ML (IVPB) BAG IV ONE
== END 2021-06-28 | disposition home or self-care (01) ==
LOC: ONC 10:29
PROVIDERS: ATTEND Internal Medicine
DX: C44.509 Unspecified malignant neoplasm of skin of other part of trunk (principal)
CPT/HCPCS: 80053; 83615; 85025; 99213

== ENCOUNTER → 2021-10-13 | Outpatient (CLI) | payer MEDICARE, MEDICAID ==
[~2021-10-13] MED LIST changes: +CATHETER FLUSH 10 ML SYR IV PRN; +HOLD METFORMIN - RECEIVED CONTRAST 20 ML VIAL IV SCH; +IOHEXOL 350 MG/ML 100 ML (OMNIPAQUE 350) VIAL IV ONE; +NS 100 ML (IVPB) BAG IV ONE; -QUIN40TA14 PO; +QUIN40TA34 PO
== END ==
LOC: RAD 12:45
PROVIDERS: ATTEND Internal Medicine
DX: C76.1 Malignant neoplasm of thorax (principal)

== ENCOUNTER 2021-10-18 12:14 | Outpatient (RCR) | payer MEDICARE, MEDICAID ==
[2021-10-13 12:13] LABS: BASOPHILS % (AUTO) 1 % (0-10); EOSINOPHILS # (AUTO) 0.1 10^3/uL (0.0-0.3); EOSINOPHILS % (AUTO) 2 % (0-10); HEMATOCRIT 40 % (40-54); HEMOGLOBIN 14.3 g/dL (13.3-17.7); LYMPHOCYTES # (AUTO) 2.5 10^3/uL (1.0-4.0); LYMPHOCYTES % (AUTO) 34 % (12-44); MEAN CORPUSCULAR HEMOGLOBIN 33 pg (25-34); MEAN CORPUSCULAR HGB CONC 36 g/dL (32-36); MEAN CORPUSCULAR VOLUME 93 fL (80-99); MEAN PLATELET VOLUME 9.7 fL (9.0-12.2); MONOCYTES # (AUTO) 0.5 10^3/uL (0.0-1.0); MONOCYTES % (AUTO) 7 % (0-12); NEUTROPHILS # (AUTO) 4.3 10^3/uL (1.8-7.8); NEUTROPHILS % (AUTO) 58 % (42-75); PLATELET COUNT 270 10^3/uL (130-400); WHITE BLOOD COUNT 7.4 10^3/uL (4.3-11.0)
[2021-10-13 12:58] LABS: ALBUMIN 3.9 GM/DL (3.2-4.5); BILIRUBIN,TOTAL 0.5 MG/DL (0.1-1.0); CALCIUM 8.8 MG/DL (8.5-10.1); CREATININE SERUM 0.82 MG/DL (0.60-1.30); POTASSIUM 4.9 MMOL/L (3.6-5.0); TOTAL PROTEIN 6.7 GM/DL (6.4-8.2)
--- NOTE | 2021-10-13 13:44 | Diagnostic Imaging Report ---
EXAMINATION: CT chest, abdomen and pelvis with intravenous contrast. TECHNIQUE: Multiple contiguous axial images were obtained through the chest, abdomen and pelvis after the uneventful administration of intravenous contrast. All CT scans use one or more of the following dose optimizing techniques: automated exposure control, MA and/or KvP adjustment based on patient size and exam type or iterative reconstruction. HISTORY: MALIGNANT NEOPLASM OF THORAX COMPARISON: 06/17/2021 FINDINGS: Thyroid: The visualized thyroid gland is normal. Mediastinum: Heart size is normal without significant pericardial effusion. Calcifications of the aorta and coronary vessels. Thoracic aorta is normal in caliber. No suspicious lymphadenopathy. Lungs and airways: The lungs are clear without consolidation, pleural effusion, or pneumothorax. Stable 1.0 x 0.9 cm right lower lobe pulmonary nodule near the right fissure. Increasing size of a left upper lobe pulmonary nodule which measures 1.0 x 0.9 cm on (series 3 image 38). Increasing size of a 0.5 cm left lower lobe pulmonary nodule (series 3 image 98). Additional pulmonary nodules are unchanged. The airways are normal. Solid organs: The liver is normal without focal lesion. The gallbladder is normal. There is no biliary ductal dilation. Pancreas is normal. Spleen is normal. Adrenal glands are normal. The kidneys are normal without hydronephrosis. Bowel: There is small hiatal hernia. No bowel obstruction. There is scattered colonic diverticulosis. The appendix is normal. Peritoneum: There is no intraperitoneal free fluid or free air. No suspicious lymphadenopathy. Vasculature: Calcification of the aorta without aneurysm. Musculoskeletal: Stable chronic compression deformities. No new suspicious osseous lesion. Pelvis: The prostate gland is normal. The urinary bladder is normal. IMPRESSION: 1. Increasing size of multiple pulmonary nodules. Additional pulmonary nodules measuring up to 1.0 cm are unchanged. Findings are concerning for progressive metastatic disease. 2. No findings of metastatic disease within the abdomen or pelvis. Dictated by: Dictated on workstation # [id number]
== END 2021-10-26 | disposition home or self-care (01) ==
LOC: ONC 12:14
PROVIDERS: ATTEND Internal Medicine
DX: C43.59 Malignant melanoma of other part of trunk (principal); R91.8 Other nonspecific abnormal finding of lung field
CPT/HCPCS: 36415; 71260; 74177; 80053; 84153; 85025; 99213

== ENCOUNTER → 2022-01-10 | Outpatient (CLI) | payer MEDICARE, MEDICAID ==
--- NOTE | 2022-01-10 13:47 | Diagnostic Imaging Report ---
EXAMINATION: CT chest, abdomen, and pelvis with intravenous contrast. TECHNIQUE: Multiple contiguous axial images were obtained through the chest, abdomen and pelvis after the uneventful administration of intravenous contrast. All CT scans use one or more of the following dose optimizing techniques: automated exposure control, MA and/or KvP adjustment based on patient size and exam type or iterative reconstruction. HISTORY: History of melanoma of the left chest wall. Evaluate for metastatic disease. COMPARISON: 10/13/2021. FINDINGS: CT CHEST: The heart size is within normal limits. No pericardial effusion is present. There is no mediastinal, hilar, or axillary lymphadenopathy. A nodule in the left upper lobe is seen measuring 1.2 x 0.9 cm, previously 0.9 x 0.9 cm. The nodule in the right middle lobe measures 1.2 x 0.7 cm, previously 1.0 x 0.9 cm. No new focal nodules are seen. There are no focal areas of consolidation. No central endobronchial obstructing lesions are identified. There are no pleural effusions or pneumothorax. Stable height loss is seen at T12. CT ABDOMEN AND PELVIS: The liver, spleen, pancreas, adrenal glands, and kidneys have a normal appearance. The gallbladder is unremarkable. There is no pathologically enlarged mesenteric or retroperitoneal adenopathy. The bowel loops are nondilated. The appendix is visualized in the right lower quadrant and has a normal appearance. Diverticula are seen in the descending and sigmoid colon without evidence of acute diverticulitis. There is no free fluid or free air. The osseous structures demonstrate no acute abnormalities. There is calcified aortic and iliac atherosclerotic plaque without aneurysm. Ureters and bladder have a normal appearance. There is no free air, loculated collection, or adenopathy in the pelvis. IMPRESSION: 1. Slight increase in size of nodules in the left upper lobe and right middle lobe. No new pulmonary nodules. Recommend continued close followup. 2. No evidence of metastatic disease in the abdomen or pelvis. Dictated by: Dictated on workstation # [id number]
== END ==
LOC: RAD 10:15
PROVIDERS: ATTEND Internal Medicine
DX: C76.1 Malignant neoplasm of thorax (principal)
CPT/HCPCS: 71260; 74177

== ENCOUNTER 2022-01-17 11:42 | Outpatient (RCR) | payer MEDICARE, MEDICAID ==
[2022-01-10 09:17] LABS: BASOPHILS # (AUTO) 0.1 10^3/uL (0.0-0.1); BASOPHILS % (AUTO) 1 % (0-10); EOSINOPHILS % (AUTO) 1 % (0-10); HEMATOCRIT 40 % (40-54); LYMPHOCYTES # (AUTO) 2.4 10^3/uL (1.0-4.0); LYMPHOCYTES % (AUTO) 34 % (12-44); MEAN CORPUSCULAR HEMOGLOBIN 33 pg (25-34); MEAN CORPUSCULAR HGB CONC 35 g/dL (32-36); MEAN CORPUSCULAR VOLUME 94 fL (80-99); MEAN PLATELET VOLUME 9.9 fL (9.0-12.2); MONOCYTES # (AUTO) 0.6 10^3/uL (0.0-1.0); MONOCYTES % (AUTO) 8 % (0-12); NEUTROPHILS # (AUTO) 4.1 10^3/uL (1.8-7.8); NEUTROPHILS % (AUTO) 57 % (42-75); PLATELET COUNT 267 10^3/uL (130-400); WHITE BLOOD COUNT 7.2 10^3/uL (4.3-11.0)
[2022-01-10 10:01] LABS: BILIRUBIN,TOTAL 0.4 MG/DL (0.1-1.0); CALCIUM 9.3 MG/DL (8.5-10.1); CREATININE SERUM 0.8 MG/DL (0.60-1.30); POTASSIUM 4.4 MMOL/L (3.6-5.0)
[~2022-01-17 11:42] MED LIST changes: -CATHETER FLUSH 10 ML SYR IV PRN; -HOLD METFORMIN - RECEIVED CONTRAST 20 ML VIAL IV SCH; -IOHEXOL 350 MG/ML 100 ML (OMNIPAQUE 350) VIAL IV ONE; -NS 100 ML (IVPB) BAG IV ONE
[2022-01-25] MEDS ORDERED: CYCL10TA25 PO (07:15)
== END 2022-01-26 | disposition home or self-care (01) ==
LOC: ONC 11:42
PROVIDERS: ATTEND Internal Medicine
DX: C43.59 Malignant melanoma of other part of trunk (principal); R91.8 Other nonspecific abnormal finding of lung field
CPT/HCPCS: 36415; 80053; 85025; 99213

== ENCOUNTER 2022-01-25 06:43 | Outpatient (CLI) | payer MEDICARE, MEDICAID ==
[2022-01-25] VITALS (13 sets, daily range): BP systolic 103–185; BP diastolic 65–100
[2022-01-25] MEDS ORDERED: CYCL10TA25 PO (07:15)
[2022-01-25 07:33] LABS: HEMATOCRIT 39 % (40-54); HEMOGLOBIN 13.4 g/dL (13.3-17.7); MEAN CORPUSCULAR HEMOGLOBIN 32 pg (25-34); MEAN CORPUSCULAR HGB CONC 35 g/dL (32-36); MEAN CORPUSCULAR VOLUME 93 fL (80-99); MEAN PLATELET VOLUME 9.4 fL (9.0-12.2); PLATELET COUNT 230 10^3/uL (130-400); WHITE BLOOD COUNT 6.5 10^3/uL (4.3-11.0)
[2022-01-25 07:48] LABS: PROTHROMBIN TIME PATIENT 13.2 SEC (12.2-14.7)
[2022-01-25] MEDS ORDERED: NS IV 1000 ML 1,000 ML IV STA (08:04)
[2022-01-25] MEDS ORDERED: LIDOCAINE 1% INJ 50 ML (XYLOCAINE) VIAL IJ ONE (08:15)
[2022-01-25] MEDS ORDERED: MIDAZOLAM 2 MG/2 ML (VERSED) VIAL IVP ONE (08:15)
[2022-01-25] MEDS ORDERED: fentaNYL INJ 100 MCG/2 ML AMP IVP ONE (08:15)
[2022-01-25] MEDS ORDERED: HYDROcodone/APAP 5 MG/325 MG (LORTAB) TAB PO PRN (09:45)
--- NOTE | 2022-01-25 09:55 | Pre-Op Note & Conscious Sedat ---
Pre-Operative Progress Note Date of Available H&P: Jan 25, 2022 Date H&P Reviewed: Jan 25, 2022 Time H&P Reviewed: 08:00 Pre-Op Diagnosis: lung nodule Conscious Sedation Pre-Proced Time 08:00 ASA Score 2 For ASA 3 and 4: Consider anesthesia and medical clearance. Also, for patients with a history of failed moderate sedation consider anesthesia. Airway Lungs Heart ASA score ASA 1: a normal healthy patient ASA 2: a patient with a mild systemic disease (mid diabetes, controlled hypertension, obesity ASA 3: a patient with a severe systemic disease that limits activity (angina, COPD, prior Myocardial infarction) ASA 4: a patient with an incapacitating disease that is a constant threat to life (CHF, renal failure) ASA 5: a moribund patient not expected to survive 24 hrs. (ruptured aneurysm) ASA 6: a declared brain- patient whose organs are being harvested. For emergent operations, add the letter E after the classification Mallampati Classification Grade 2 Sedation Plan Analgesia, Amnesia, Plan communicated to team members, Discussed options with patient/fam, Discussed risks with patient/fam The patient is an appropriate candidate to undergo the planned procedure, sedation, and anesthesia. The patient immediately re-assessed prior to indication. NANO KIM MD Jan 25, 2022 09:55
--- NOTE | 2022-01-25 10:03 | Diagnostic Imaging Report ---
INDICATION: Left upper lobe lung nodule. Patient presents for CT-guided biopsy. TECHNIQUE: All CT scans use one or more of the following dose optimizing techniques: automated exposure control, MA and/or KvP adjustment based on patient size and exam type or iterative reconstruction. The patient brought to the CT suite and placed on the table in the supine position. Axial imaging through the chest was performed to evaluate appropriate entry site. The procedure was performed utilizing conscious sedation with radiology nursing and constant patient monitoring. Patient was given total of 50 mg of fentanyl intravenously and 1 mg of Versed intravenously. Total procedure time was approximately 13 minutes. Upper left chest was prepped and draped in the usual sterile fashion. Small amount of 1% lidocaine was utilized for local anesthesia. 18-gauge coaxial Temno needle was advanced from an anterior approach placed with its tip along the margin of the nodule in the left upper lobe. 3 core biopsies were obtained. A blood patch was injected during needle removal. Followup imaging does show moderate amount of hemorrhage in the left upper lobe. There is a small left basilar pneumothorax. Patient tolerated procedure well and left the department in stable condition. IMPRESSION: CT-guided left upper lobe lung core biopsy utilizing conscious sedation. Pathology results are currently pending. Dictated by: Dictated on workstation # [id number]
--- NOTE | 2022-01-25 11:29 | Diagnostic Imaging Report ---
Indication: Left lung nodule status post CT-guided biopsy. Time of Exam: 11:14 AM Single view chest was obtained. There is infiltrate in the left upper lobe from recent biopsy. There is a very small left apical pneumothorax. Minimal subcutaneous gas left chest wall is noted. No significant effusion is seen. Right lung is clear. Impression: Left upper lobe infiltrate, likely a small amount of hemorrhage from recent biopsy. There is a very small left apical pneumothorax. No other significant abnormality is seen. Dictated by: Dictated on workstation # [id number]
== END 2022-01-25 12:29 | disposition home or self-care (01) ==
LOC: SDC 06:43
PROVIDERS: ATTEND Internal Medicine
DX: C76.1 Malignant neoplasm of thorax (principal); J93.9 Pneumothorax, unspecified; R79.1 Abnormal coagulation profile
CPT/HCPCS: 36415; 71045; 77012; 85027; 85610; 85730; 99156

== ENCOUNTER 2022-02-16 08:32 | Outpatient (RCR) | payer MEDICARE, MEDICAID ==
[~2022-02-16 08:32] MED LIST changes: +CYCL10TA25 PO
== END 2022-02-25 | disposition home or self-care (01) ==
LOC: ONC 08:32
PROVIDERS: ATTEND Internal Medicine
DX: Z51.0 Encounter for antineoplastic radiation therapy (principal); C43.59 Malignant melanoma of other part of trunk; R91.8 Other nonspecific abnormal finding of lung field
CPT/HCPCS: 77293; 77300; 77301; 77334; 77338; 77470; 99204; 99213

== ENCOUNTER 2022-03-23 08:29 | Outpatient (RCR) | payer MEDICARE, MEDICAID | END 2022-03-28 | disposition home or self-care (01) | LOC: ONC 08:29 | PROVIDERS: ATTEND Internal Medicine | DX: Z51.0 Encounter for antineoplastic radiation therapy (principal); C43.59 Malignant melanoma of other part of trunk; C78.00 Secondary malignant neoplasm of unspecified lung | CPT/HCPCS: 77336; 77370; 77373 ==

== ENCOUNTER → 2022-05-02 | Outpatient (CLI) | payer MEDICARE, MEDICAID ==
[~2022-05-02] MED LIST changes: +CATHETER FLUSH 10 ML SYR IV PRN; +HOLD METFORMIN - RECEIVED CONTRAST 20 ML VIAL IV SCH; +IOHEXOL 350 MG/ML 100 ML (OMNIPAQUE 350) VIAL IV ONE; +NS 100 ML (IVPB) BAG IV ONE
[2022-05-02 10:26] LABS: ALBUMIN 3.8 GM/DL (3.2-4.5); BILIRUBIN,TOTAL 0.8 MG/DL (0.1-1.0); CALCIUM 9.2 MG/DL (8.5-10.1); CREATININE SERUM 0.83 MG/DL (0.60-1.30); POTASSIUM 4.1 MMOL/L (3.6-5.0)
--- NOTE | 2022-05-02 16:49 | Diagnostic Imaging Report ---
INDICATION: Lung cancer, follow-up. TECHNIQUE: Multiple contiguous axial images were obtained through the chest, abdomen, and pelvis after the administration of intravenous contrast. Auto Exposure Controls were utilized during the CT exam to meet ALARA standards for radiation dose reduction. Comparison made with 01/10/2022. CT CHEST FINDINGS: There are no enlarged mediastinal or hilar nodes. There are no enlarged axillary nodes or chest wall masses. There is no pleural or pericardial fluid. A zhimbmvv-sj-jczwy hiatal hernia is noted. On the prior study, there is a pulmonary nodule in the left upper lobe which measured 1.2 x 0.7 cm. This now measures about 0.8 x 0.7 cm. This is best seen on image 39 of series 3. There are a couple of small nodules in the right lower lobe, which were not seen previously. The more anterior nodule measured about 4 mm, best seen on image 114. A smaller more posterior nodule measured about 3-4 mm, best seen on image 115. There is a new nodule in the right lower lobe on image 97, measuring about 7 mm. There is a new nodule in the left lower lobe on image 95 measuring 6 mm. There is some scarring in the right middle lobe. CT ABDOMEN PELVIS FINDINGS: There is a lesion in the left lobe of the liver, which is new compared to the prior study, measuring about 4.3 cm, suspicious for metastatic disease. No other liver lesions are seen. Gallbladder, spleen, adrenals, and pancreas appear normal. The kidneys bilaterally are unremarkable. There is no retroperitoneal mass or adenopathy. There is no ascites or abnormal fluid collection. Visualized bowel loops show uncomplicated diverticula. IMPRESSION: CT chest shows mixed results compared to the prior study. There did appear to be multiple new pulmonary nodules as described above which are worrisome for metastatic disease. The previous nodule in the left upper lobe has shown slight decrease in size. There is no adenopathy or pleural fluid. CT abdomen and pelvis demonstrate a new likely metastatic lesion in the left lobe of the liver, with no new abnormality seen elsewhere. Dictated by: Dictated on workstation # [id number]
== END ==
LOC: RAD 09:22
PROVIDERS: ATTEND Internal Medicine
DX: C76.1 Malignant neoplasm of thorax (principal)
CPT/HCPCS: 36415; 71260; 74177; 80053

== ENCOUNTER → 2022-05-05 | Outpatient (CLI) | payer MEDICARE, MEDICAID ==
[~2022-05-05] MED LIST changes: -CATHETER FLUSH 10 ML SYR IV PRN; +GADOTERATE 0.5 MMOL/ML (CLARISCAN) 20 ML VIAL IV ONE; -HOLD METFORMIN - RECEIVED CONTRAST 20 ML VIAL IV SCH; -IOHEXOL 350 MG/ML 100 ML (OMNIPAQUE 350) VIAL IV ONE; -NS 100 ML (IVPB) BAG IV ONE
--- NOTE | 2022-05-05 11:58 | Diagnostic Imaging Report ---
CLINICAL INDICATION: Patient with melanoma cancer of his left-sided chest area. Evaluate for metastases. EXAM: MRI of the brain performed without and with 20 cc of Clariscan IV contrast. Sequences include axial DWI, ADC map, axial gradient echo, axial FLAIR, axial T1, axial T2, axial T1 post IV contrast whole brain, coronal T1 fat-sat post IV contrast whole brain, and sagittal T1 fat-sat post IV contrast whole brain. COMPARISON: None. FINDINGS: There is no evidence of acute cerebral infarct, intracranial hemorrhage, or gross mass effect. There is a 6 mm hypoenhancing area involving the right side of the pituitary gland. The brain parenchymal volume appears appropriate for patient's age. There are multiple focal, patchy and confluent areas of high T2 signal white matter changes seen throughout both cerebral hemispheres and periventricular regions. There is normal mcrae-white matter distinction. There is no significant midline shift or herniation. The [place] vascular structures show no gross abnormality as visualized.. There is no evidence of hydrocephalus. The basal cisterns are unremarkable. The skull, extracranial soft tissue, and orbits are unremarkable. The paranasal sinuses are unremarkable. Temporal bones show no significant abnormality. IMPRESSION: 1: There is no evidence of acute intracranial process. There is no evidence of metastatic disease. 2: There is a 6 mm hypoenhancing area involving the right side of the pituitary. Microadenoma should be excluded. MRI of the brain/pituitary with and without contrast is suggested. 3: Age-related brain parenchymal changes with mild chronic small vessel ischemic disease and leukoaraiosis. Dictated by: Dictated on workstation # [id number]
== END ==
LOC: RAD 08:47
PROVIDERS: ATTEND Internal Medicine
DX: C76.1 Malignant neoplasm of thorax (principal); I67.82 Cerebral ischemia; I67.81 Acute cerebrovascular insufficiency
CPT/HCPCS: 70553

== ENCOUNTER 2022-05-18 07:57 | Outpatient (RCR) | payer MEDICARE, MEDICAID ==
[2022-05-09 10:32] LABS: BASOPHILS # (AUTO) 0.1 10^3/uL (0.0-0.1); BASOPHILS % (AUTO) 1 % (0-10); EOSINOPHILS # (AUTO) 0.2 10^3/uL (0.0-0.3); EOSINOPHILS % (AUTO) 3 % (0-10); HEMATOCRIT 40 % (40-54); HEMOGLOBIN 14.3 g/dL (13.3-17.7); LYMPHOCYTES % (AUTO) 26 % (12-44); MEAN CORPUSCULAR HEMOGLOBIN 33 pg (25-34); MEAN CORPUSCULAR HGB CONC 36 g/dL (32-36); MEAN CORPUSCULAR VOLUME 92 fL (80-99); MEAN PLATELET VOLUME 9.4 fL (9.0-12.2); MONOCYTES # (AUTO) 0.6 10^3/uL (0.0-1.0); MONOCYTES % (AUTO) 8 % (0-12); NEUTROPHILS # (AUTO) 4.7 10^3/uL (1.8-7.8); NEUTROPHILS % (AUTO) 62 % (42-75); PLATELET COUNT 276 10^3/uL (130-400); WHITE BLOOD COUNT 7.5 10^3/uL (4.3-11.0)
[~2022-05-18] VITALS: Ht 177.8 cm; Wt 109.8 kg
[~2022-05-18 07:57] MED LIST changes: -GADOTERATE 0.5 MMOL/ML (CLARISCAN) 20 ML VIAL IV ONE; +HEParin (CENTRAL IV FLUSH) 500 UNIT/5 ML SYR IV PRN; +IPILIMUMAB IV SCH; +NIVOLUMAB IV SCH; +NS IV 1000 ML (CANCER CTR) IV SCH; +NS IV SCH
[2022-05-18 08:38] LABS: BASOPHILS % (AUTO) 1 % (0-10); EOSINOPHILS # (AUTO) 0.2 10^3/uL (0.0-0.3); EOSINOPHILS % (AUTO) 3 % (0-10); HEMATOCRIT 38 % (40-54); HEMOGLOBIN 13.7 g/dL (13.3-17.7); LYMPHOCYTES # (AUTO) 1.9 10^3/uL (1.0-4.0); LYMPHOCYTES % (AUTO) 25 % (12-44); MEAN CORPUSCULAR HEMOGLOBIN 33 pg (25-34); MEAN CORPUSCULAR HGB CONC 36 g/dL (32-36); MEAN CORPUSCULAR VOLUME 91 fL (80-99); MEAN PLATELET VOLUME 9.4 fL (9.0-12.2); MONOCYTES # (AUTO) 0.7 10^3/uL (0.0-1.0); MONOCYTES % (AUTO) 9 % (0-12); NEUTROPHILS # (AUTO) 4.8 10^3/uL (1.8-7.8); NEUTROPHILS % (AUTO) 63 % (42-75); PLATELET COUNT 238 10^3/uL (130-400); WHITE BLOOD COUNT 7.7 10^3/uL (4.3-11.0)
[2022-05-18 09:05] LABS: ALBUMIN 3.6 GM/DL (3.2-4.5); BILIRUBIN,TOTAL 0.5 MG/DL (0.1-1.0); CALCIUM 8.5 MG/DL (8.5-10.1); CREATININE SERUM 0.87 MG/DL (0.60-1.30); POTASSIUM 3.7 MMOL/L (3.6-5.0); TOTAL PROTEIN 6.6 GM/DL (6.4-8.2)
[2022-05-18 09:26] LABS: FREE T4 (FREE THYROXINE) 0.94 NG/DL (0.70-1.48)
== END 2022-05-28 | disposition home or self-care (01) ==
LOC: ONC 07:57
PROVIDERS: ATTEND Internal Medicine
DX: Z51.11 Encounter for antineoplastic chemotherapy (principal); C76.1 Malignant neoplasm of thorax; C78.00 Secondary malignant neoplasm of unspecified lung
CPT/HCPCS: 85025; G0463; 36415; 80053; 84439; 84443; 96413; 96417; 99213

== ENCOUNTER 2022-05-29 14:55 | Emergency (ER) | payer MEDICARE, MEDICAID ==
[~2022-05-29] VITALS: Ht 180 cm; Wt 108.6 kg
[~2022-05-29 14:55] MED LIST changes: -HEParin (CENTRAL IV FLUSH) 500 UNIT/5 ML SYR IV PRN; -IPILIMUMAB IV SCH; -NIVOLUMAB IV SCH; -NS IV 1000 ML (CANCER CTR) IV SCH; -NS IV SCH
--- NOTE | 2022-05-29 15:14 | ED Integumentary General ---
General Chief Complaint: Allergic Reaction Stated Complaint: POSS ALLERGIC REACTION Nursing Triage Note: PT STATES HE STARTED TAKING OPDIVO ON 05/18 AND TAKES IT EVERY 3 WKS. CC OF CHEST PRESSURE AND ITCHING ALL OVER, SLOW AND UNSTEADY ON HIS FEET. SS STARTED ON 05/24 Source: patient Exam Limitations: no limitations History of Present Illness Date Seen by Provider: May 29, 2022 Time Seen by Provider: 15:13 Initial Comments 67 y/o male presents today with c/o rash and "itching all over." Pt states he started new chemotherapy medication on 05/18/22. Six days later, he began feeling itchy all over his body. He read on his paperwork from oncologist that rash and itching is a normal side effect of the medication. He attempted to contact his oncologist today but was unsuccessful. He has not taken benadryl because he reports he was told not to take any OTC medications without asking doctor first. He noticed a rash on his chest yesterday and is feeling pressure on his chest. Timing/Duration: constant, week Severity: moderate Location: generalized Possible Cause: medications Modifying Factors: worse with scratching Associated Symptoms: No blisters, No change in skin texture, No edema, No fever, No flushing, No headache, No jaundice, No malaise, No nasal congestion, No numbness, No pallor, No paresthesia, No petechiae; rash; No sore throat, No swelling/mass/lumps, No tingling Allergies and Home Medications Allergies Coded Allergies: No Known Drug Allergies (Unverified , 01/30/20) Patient Home Medication List Home Medication List Reviewed: Yes Aspirin (Aspirin) 81 Mg Tab.chew, 81 MG PO DAILY, (Reported) Entered as Reported by: ABDI LÓPEZ on 01/30/201313 Brexpiprazole (Rexulti) 3 Mg Tablet, 3 MG PO DAILY, (Reported) Entered as Reported by: ABDI LÓPEZ on 01/30/201313 Bupropion HCl (Wellbutrin Xl) 150 Mg Tab.er.24h, 150 MG PO DAILY, (Reported) Entered as Reported by: ABDI LÓPEZ on 01/30/201313 Bupropion HCl (Wellbutrin Xl) 300 Mg Tab.er.24h, 300 MG PO DAILY, (Reported) Entered as Reported by: ABDI LÓPEZ on 01/30/20 1314 Cyclobenzaprine HCl (Cyclobenzaprine HCl) 10 Mg Tablet, 10 MG PO TID, (Reported) Entered as Reported by: LISETTE LOAIZA on 01/25/22 0715 Desvenlafaxine Succinate (Pristiq ER) 100 Mg Tab.er.24h, 100 MG PO DAILY, (Reported) Entered as Reported by: ABDI LÓPEZ on 03/05/20 1217 Propranolol HCl (Propranolol HCl) 80 Mg Tablet, 80 MG PO BID, (Reported) Entered as Reported by: ABDI LÓPEZ on 01/30/20 1314 Quinapril HCl (Quinapril HCl) 40 Mg Tablet, 40 MG PO BID, (Reported) Entered as Reported by: ABDI LÓPEZ on 01/30/20 1314 Zolpidem Tartrate (Ambien) 5 Mg Tablet, 5 MG PO HS, (Reported) Entered as Reported by: TIERA ESCOBEDO on 02/04/20 0841 Review of Systems Review of Systems Constitutional: no symptoms reported EENTM: see HPI Respiratory: no symptoms reported Cardiovascular: chest pain; No edema, No palpitations, No syncope, No vascular heart diseas Gastrointestinal: no symptoms reported Genitourinary: no symptoms reported Musculoskeletal: no symptoms reported Skin: pruritus, rash Psychiatric/Neurological: No Symptoms Reported Endocrine: No Symptoms Reported Hematologic/Lymphatic: No Symptoms Reported Past Wpdafss-Sppbci-Juxmwe Hx Patient Social History Tobacco Use?: Yes Smoking Status: Former Smoker Substance use?: No Alcohol Use?: Yes Alcohol type: Beer Alcohol Frequency: Once in a while Seasonal Allergies Seasonal Allergies: No Past Medical History Surgery/Hospitalization HX: LUNG CA WITH RADIATION AND CHEMO, HYPERTENSION, P[facility]INSON'S, CPAP, LOW SODIUM Surgeries: Yes (knee scope, chest mass removed) Tonsillectomy Respiratory: No Currently Using CPAP: Yes Currently Using BIPAP: No Cardiac: Yes Hypertension Neurological: No Genitourinary: No Gastrointestinal: No Musculoskeletal: Yes Arthritis Endocrine: No HEENT: No (no teeth) Cancer: Yes Melanoma Psychosocial: Yes Depression Integumentary: No Blood Disorders: No Physical Exam Vital Signs Vital Signs - First Documented 05/29/22 14:59 Temp 37.2 Pulse 64 Resp 18 B/P (MAP) 145/85 (105) Pulse Ox 98 O2 Delivery Room Air Capillary Refill : Less Than 3 Seconds General Appearance: WD/WN, no apparent distress HEENT: PERRL/EOMI, normal ENT inspection, TMs normal, pharynx normal Neck: non-tender, full range of motion, supple, normal inspection Cardiovascular: normal peripheral pulses, regular rate, rhythm, no edema, no murmur Respiratory: chest non-tender, lungs clear, normal breath sounds, no respiratory distress Gastrointestinal: normal bowel sounds, non tender, soft, no organomegaly Extremities: normal range of motion, non-tender, normal inspection, no pedal edema Neurologic/Psychiatric: no motor/sensory deficits, alert, normal mood/affect, oriented x 3 Skin: warm/dry, rash Skin Problem Character: urticarial (forehead, chest, upper back) Lymphatic: no adenopathy Progress/Results/Core Measures Results/Orders Lab Results Laboratory Tests Test 05/29/22 16:45 Range/Units White Blood Count 6.3 4.3-11.0 10^3/uL Red Blood Count 4.31 4.30-5.52 10^6/uL Hemoglobin 13.9 13.3-17.7 g/dL Hematocrit 39 L 40-54 % Mean Corpuscular Volume 91 80-99 fL Mean Corpuscular Hemoglobin 32 25-34 pg Mean Corpuscular Hemoglobin Concent 35 32-36 g/dL Red Cell Distribution Width 12.4 10.0-14.5 % Platelet Count 243 130-400 10^3/uL Mean Platelet Volume 9.2 9.0-12.2 fL Immature Granulocyte % (Auto) 0 % Neutrophils (%) (Auto) 51 42-75 % Lymphocytes (%) (Auto) 29 12-44 % Monocytes (%) (Auto) 10 0-12 % Eosinophils (%) (Auto) 9 0-10 % Basophils (%) (Auto) 1 0-10 % Neutrophils # (Auto) 3.2 1.8-7.8 10^3/uL Lymphocytes # (Auto) 1.8 1.0-4.0 10^3/uL Monocytes # (Auto) 0.6 0.0-1.0 10^3/uL Eosinophils # (Auto) 0.6 H 0.0-0.3 10^3/uL Basophils # (Auto) 0.1 0.0-0.1 10^3/uL Immature Granulocyte # (Auto) 0.0 0.0-0.1 10^3/uL Sodium Level 135 135-145 MMOL/L Potassium Level 4.1 3.6-5.0 MMOL/L Chloride Level 104 98-107 MMOL/L Carbon Dioxide Level 22 21-32 MMOL/L Anion Gap 9 5-14 MMOL/L Blood Urea Nitrogen 9 7-18 MG/DL Creatinine 0.80 0.60-1.30 MG/DL Estimat Glomerular Filtration Rate 96 BUN/Creatinine Ratio 11 Glucose Level 96 70-105 MG/DL Calcium Level 9.0 8.5-10.1 MG/DL Corrected Calcium 9.1 8.5-10.1 MG/DL Total Bilirubin 0.8 0.1-1.0 MG/DL Aspartate Amino Transf (AST/SGOT) 20 5-34 U/L Alanine Aminotransferase (ALT/SGPT) 6 0-55 U/L Alkaline Phosphatase 70 40-136 U/L Troponin I < 0.028 <0.028 NG/ML Total Protein 7.2 6.4-8.2 GM/DL Albumin 3.9 3.2-4.5 GM/DL My Orders Orders - YO [employer] Diphenhydramine Injection (Benadryl Inje (05/29/22 15:30) Diphenhydramine 2% Cream (Benadryl 2% Cr (05/29/22 21:00) Cbc With Automated Diff (05/29/22 15:24) Comprehensive Metabolic Panel (05/29/22 15:24) Troponin I Miguelina (05/29/22 15:24) Ekg Tracing (05/29/22 15:24) Diphenhydramine 2% Cream (Benadryl 2% Cr (05/29/22 17:15) Medications Given in ED Current Medications Medications Dose Ordered Sig/Dian Route Start Time Stop Time Status Last Admin Dose Admin Diphenhydramine HCl 25 mg ONCE ONCE IM 05/29/22 15:30 05/29/22 15:31 DC 05/29/22 16:05 25 MG Diphenhydramine HCl APPLY SPARINGLY TID ONCE TOP 05/29/22 21:00 05/29/22 17:57 DC 05/29/22 17:18 30 GM Vital Signs/I&O 05/29/22 05/29/22 14:59 17:54 Temp 37.2 37.2 Pulse 64 55 Resp 18 16 B/P (MAP) 145/85 (105) 125/78 Pulse Ox 98 97 O2 Delivery Room Air Room Air Blood Pressure Mean: 105 Progress Progress Note : Progress Note pt given IV benadryl and topical benadryl was applied to rash on forehead, chest, and upper back. Pt reports improvement of pruritus and chest pressure and rash appears improved as well. Labs reassuring, EKG with no acute findings. He has follow up with oncologist on 06/06/22 and will discuss reaction with him at that time. He has no doses scheduled between today and 06/06/22 Initial ECG Impression Date: May 29, 2022 Initial ECG Impression Time: 15:40 Initial ECG Rhythm: S.Julian Initial ECG Intervals AK int: 181 ms QRS dur: 98 ms QTc: 422 ms Initial ECG Impression: Normal Departure Impression Primary Impression: Urticaria Disposition: HOME, SELF-CARE Condition: Improved Departure-Patient Inst. Decision time for Depature: 17:45 Referrals: [facility] [place] ([place]Family) Primary Care Physician Patient Instructions: [place] (DC) Add. Discharge Instructions: Benadryl 25mg every 4 hours as needed. Benadryl cream four times daily as needed for itching. Follow up with your oncologist on Monday05/31/22 All discharge instructions reviewed with patient and/or family. Voiced understanding. YO SCHNEIDER APRN May 29, 2022 15:14
[2022-05-29] MEDS ORDERED: diphenhydrAMINE 50 MG/ML INJ (BENADRYL) IM ONE (15:30)
[2022-05-29 16:51] LABS: BASOPHILS # (AUTO) 0.1 10^3/uL (0.0-0.1); BASOPHILS % (AUTO) 1 % (0-10); EOSINOPHILS # (AUTO) 0.6 10^3/uL (0.0-0.3); EOSINOPHILS % (AUTO) 9 % (0-10); HEMATOCRIT 39 % (40-54); HEMOGLOBIN 13.9 g/dL (13.3-17.7); LYMPHOCYTES # (AUTO) 1.8 10^3/uL (1.0-4.0); LYMPHOCYTES % (AUTO) 29 % (12-44); MEAN CORPUSCULAR HEMOGLOBIN 32 pg (25-34); MEAN CORPUSCULAR HGB CONC 35 g/dL (32-36); MEAN CORPUSCULAR VOLUME 91 fL (80-99); MEAN PLATELET VOLUME 9.2 fL (9.0-12.2); MONOCYTES # (AUTO) 0.6 10^3/uL (0.0-1.0); MONOCYTES % (AUTO) 10 % (0-12); NEUTROPHILS # (AUTO) 3.2 10^3/uL (1.8-7.8); NEUTROPHILS % (AUTO) 51 % (42-75); PLATELET COUNT 243 10^3/uL (130-400); WHITE BLOOD COUNT 6.3 10^3/uL (4.3-11.0)
[2022-05-29 17:11] LABS: ALBUMIN 3.9 GM/DL (3.2-4.5); CHLORIDE 104 MMOL/L (98-107); POTASSIUM 4.1 MMOL/L (3.6-5.0); SODIUM 135 MMOL/L (135-145)
[2022-05-29 17:13] LABS: GLUCOSE 96 MG/DL (70-105); TOTAL PROTEIN 7.2 GM/DL (6.4-8.2)
[2022-05-29 17:14] LABS: CARBON DIOXIDE 22 MMOL/L (21-32)
[2022-05-29 17:15] LABS: BILIRUBIN,TOTAL 0.8 MG/DL (0.1-1.0)
[2022-05-29] MEDS ORDERED: diphenhydrAMINE 2% 30 GM CR (ALLERGY CREAM) ONE (17:15)
[2022-05-29 17:17] LABS: ALKALINE PHOSPHATASE 70 U/L (40-136); GFR ESTIMATED 96
[2022-05-29 17:18] LABS: BUN/CREATININE RATIO 11
[2022-05-29 17:20] LABS: ALANINE AMINOTRANSFERASE 6 U/L (0-55)
[2022-05-29 17:54] VITALS: BP 125/78
[2022-05-29] MEDS ORDERED: diphenhydrAMINE 2% 30 GM CR (ALLERGY CREAM) TOP ONE (21:00)
== END 2022-05-29 17:57 | disposition home or self-care (01) ==
LOC: EDUNIT# 14:55 → ER 14:56
DX: L50.9 Urticaria, unspecified (principal); Z87.891 Personal history of nicotine dependence
CPT/HCPCS: 36415; 80053; 84484; 85025; 93005

== ENCOUNTER 2022-06-27 08:38 | Outpatient (RCR) | payer MEDICARE, MEDICAID ==
[2022-06-01 08:37] LABS: BASOPHILS # (AUTO) 0.1 10^3/uL (0.0-0.1); BASOPHILS % (AUTO) 1 % (0-10); EOSINOPHILS # (AUTO) 0.8 10^3/uL (0.0-0.3); EOSINOPHILS % (AUTO) 10 % (0-10); HEMATOCRIT 38 % (40-54); HEMOGLOBIN 13.6 g/dL (13.3-17.7); LYMPHOCYTES % (AUTO) 27 % (12-44); MEAN CORPUSCULAR HEMOGLOBIN 32 pg (25-34); MEAN CORPUSCULAR HGB CONC 36 g/dL (32-36); MEAN CORPUSCULAR VOLUME 91 fL (80-99); MONOCYTES # (AUTO) 0.6 10^3/uL (0.0-1.0); MONOCYTES % (AUTO) 8 % (0-12); NEUTROPHILS % (AUTO) 53 % (42-75); PLATELET COUNT 270 10^3/uL (130-400); WHITE BLOOD COUNT 7.5 10^3/uL (4.3-11.0)
[2022-06-01 09:02] LABS: ALANINE AMINOTRANSFERASE < 6 U/L (0-55); ALBUMIN 3.9 GM/DL (3.2-4.5); ALKALINE PHOSPHATASE 70 U/L (40-136); BILIRUBIN,TOTAL 0.8 MG/DL (0.1-1.0); BUN/CREATININE RATIO 11; CALCIUM 9.2 MG/DL (8.5-10.1); CARBON DIOXIDE 25 MMOL/L (21-32); CHLORIDE 103 MMOL/L (98-107); CREATININE SERUM 0.85 MG/DL (0.60-1.30); GFR ESTIMATED 94; GLUCOSE 106 MG/DL (70-105); POTASSIUM 4.2 MMOL/L (3.6-5.0); SODIUM 137 MMOL/L (135-145); TOTAL PROTEIN 7.1 GM/DL (6.4-8.2)
[2022-06-01 09:25] LABS: FREE T4 (FREE THYROXINE) 1.04 NG/DL (0.70-1.48)
[2022-06-06 12:01] LABS: BASOPHILS % (AUTO) 0 % (0-10); EOSINOPHILS % (AUTO) 0 % (0-10); HEMATOCRIT 41 % (40-54); HEMOGLOBIN 14.7 g/dL (13.3-17.7); LYMPHOCYTES # (AUTO) 1.7 10^3/uL (1.0-4.0); LYMPHOCYTES % (AUTO) 17 % (12-44); MEAN CORPUSCULAR HEMOGLOBIN 32 pg (25-34); MEAN CORPUSCULAR HGB CONC 36 g/dL (32-36); MEAN CORPUSCULAR VOLUME 91 fL (80-99); MEAN PLATELET VOLUME 9.3 fL (9.0-12.2); MONOCYTES # (AUTO) 0.4 10^3/uL (0.0-1.0); MONOCYTES % (AUTO) 4 % (0-12); NEUTROPHILS # (AUTO) 7.8 10^3/uL (1.8-7.8); NEUTROPHILS % (AUTO) 78 % (42-75); PLATELET COUNT 286 10^3/uL (130-400); WHITE BLOOD COUNT 10.1 10^3/uL (4.3-11.0)
[2022-06-06 12:38] LABS: ALBUMIN 4.2 GM/DL (3.2-4.5); BILIRUBIN,TOTAL 0.7 MG/DL (0.1-1.0); CALCIUM 9.9 MG/DL (8.5-10.1); CREATININE SERUM 0.8 MG/DL (0.60-1.30); POTASSIUM 4.5 MMOL/L (3.6-5.0); TOTAL PROTEIN 7.5 GM/DL (6.4-8.2)
[2022-06-06 13:00] LABS: FREE T4 (FREE THYROXINE) 1.12 NG/DL (0.70-1.48)
[~2022-06-27 08:38] MED LIST changes: +DEXAMETHASONE SODIUM PHOSPHATE IV ONE; +DEXAMETHASONE SODIUM PHOSPHATE IV SCH; +HEParin (CENTRAL IV FLUSH) 500 UNIT/5 ML SYR IV PRN; +IPILIMUMAB IV SCH; +NIVOLUMAB IV SCH; +NS IV 1000 ML (CANCER CTR) IV SCH; +NS IV ONE; +NS IV SCH; +diphenhydrAMINE 25 MG TAB (BENADRYL) PO SCH; +diphenhydrAMINE 50 MG/ML INJ (BENADRYL) ONE; +morphine INJ 4 MG/ML 1 ML (VIAL/SYRINGE) ONE
[2022-06-27 09:25] LABS: BASOPHILS % (AUTO) 1 % (0-10); EOSINOPHILS # (AUTO) 0.4 10^3/uL (0.0-0.3); EOSINOPHILS % (AUTO) 7 % (0-10); HEMATOCRIT 36 % (40-54); HEMOGLOBIN 13.2 g/dL (13.3-17.7); LYMPHOCYTES # (AUTO) 1.6 10^3/uL (1.0-4.0); LYMPHOCYTES % (AUTO) 28 % (12-44); MEAN CORPUSCULAR HEMOGLOBIN 33 pg (25-34); MEAN CORPUSCULAR HGB CONC 36 g/dL (32-36); MEAN CORPUSCULAR VOLUME 91 fL (80-99); MEAN PLATELET VOLUME 9.4 fL (9.0-12.2); MONOCYTES # (AUTO) 0.5 10^3/uL (0.0-1.0); MONOCYTES % (AUTO) 8 % (0-12); NEUTROPHILS # (AUTO) 3.1 10^3/uL (1.8-7.8); NEUTROPHILS % (AUTO) 55 % (42-75); PLATELET COUNT 252 10^3/uL (130-400); WHITE BLOOD COUNT 5.6 10^3/uL (4.3-11.0)
[2022-06-27 09:54] LABS: ALBUMIN 3.4 GM/DL (3.2-4.5); BILIRUBIN,TOTAL 0.4 MG/DL (0.1-1.0); CALCIUM 9.2 MG/DL (8.5-10.1); CREATININE SERUM 0.75 MG/DL (0.60-1.30); POTASSIUM 4.4 MMOL/L (3.6-5.0); TOTAL PROTEIN 6.8 GM/DL (6.4-8.2)
[2022-06-27 10:14] LABS: FREE T4 (FREE THYROXINE) 1.03 NG/DL (0.70-1.48)
== END 2022-06-28 | disposition home or self-care (01) ==
LOC: ONC 08:38
PROVIDERS: ATTEND Internal Medicine
DX: Z51.11 Encounter for antineoplastic chemotherapy (principal); Z45.2 Encounter for adjustment and management of vascular access device; C76.1 Malignant neoplasm of thorax; C78.00 Secondary malignant neoplasm of unspecified lung; C78.7 Secondary malignant neoplasm of liver and intrahepatic bile duct; Z79.899 Other long term (current) drug therapy
CPT/HCPCS: 36415; 36591; 80053; 82024; 82533; 84439; 84443; 85025; 96360; 96375; 96413; 96417

== ENCOUNTER 2022-07-04 10:34 | Outpatient (RCR) | payer MEDICARE, MEDICAID ==
[~2022-07-04 10:34] MED LIST changes: -DEXAMETHASONE SODIUM PHOSPHATE IV ONE; -DEXAMETHASONE SODIUM PHOSPHATE IV SCH; -HEParin (CENTRAL IV FLUSH) 500 UNIT/5 ML SYR IV PRN; -IPILIMUMAB IV SCH; -NIVOLUMAB IV SCH; -NS IV 1000 ML (CANCER CTR) IV SCH; -NS IV ONE; -NS IV SCH; -diphenhydrAMINE 25 MG TAB (BENADRYL) PO SCH; -diphenhydrAMINE 50 MG/ML INJ (BENADRYL) ONE; -morphine INJ 4 MG/ML 1 ML (VIAL/SYRINGE) ONE
== END 2022-07-05 13:08 | disposition home or self-care (01) ==
LOC: ONC 10:34
PROVIDERS: ATTEND Internal Medicine
DX: C76.1 Malignant neoplasm of thorax (principal); C78.00 Secondary malignant neoplasm of unspecified lung; C78.7 Secondary malignant neoplasm of liver and intrahepatic bile duct

== ENCOUNTER → 2022-07-08 | Outpatient (CLI) | payer MEDICARE, MEDICAID ==
[~2022-07-08] MED LIST changes: +CATHETER FLUSH 10 ML SYR IV PRN; +GADOTERATE 0.5 MMOL/ML (CLARISCAN) 20 ML VIAL IV ONE; +HOLD METFORMIN - RECEIVED CONTRAST 20 ML VIAL IV SCH; +IOHEXOL 350 MG/ML 100 ML (OMNIPAQUE 350) VIAL IV ONE; +NS 100 ML (IVPB) BAG IV ONE
--- NOTE | 2022-07-08 16:24 | Diagnostic Imaging Report ---
PROCEDURE: CT chest, abdomen, and pelvis with contrast. TECHNIQUE: Multiple contiguous axial images were obtained through the chest, abdomen, and pelvis after the administration of intravenous contrast. Auto Exposure Controls were utilized during the CT exam to meet ALARA standards for radiation dose reduction. INDICATION: Followup cancer of the thorax. Patient has history of the left breast mass. Correlation is made with prior CT from 05/02/2022. CT CHEST: No axillary lymphadenopathy is detected. No mediastinal or hilar lymphadenopathy is detected. No pericardial or pleural fluid is detected. There is some scarring or atelectasis in the left upper lobe. The left upper lobe nodule previously described has decreased in size now measuring 5 mm compared with approximately 8 mm. There are numerous micronodules in the lingula and left lower lobe 2 to 3 mm in size. The lesion left lower lobe previously measured 6 mm is now barely visualized on today's study measuring to 3 mm. Multiple micronodules in the right lower lobe are seen. The 7 mm nodule in the posterior lateral right lower lobe is now barely visible. IMPRESSION: 1. Numerous bilateral pulmonary micronodules. These all appear to be significantly decreased in size when compared with prior CT from 05/02/2022. No thoracic lymphadenopathy is detected. CT ABDOMEN AND PELVIS: The low-density lesion left lobe of the liver measures 3.3 cm compared with 4.3 cm on prior. No new liver mass is detected. Gallbladder is unremarkable. There is no biliary ductal dilatation. The pancreas and spleen are unremarkable. No adrenal mass is detected. Kidneys are unremarkable. Aorta is nonaneurysmal. No central retroperitoneal or mesenteric lymphadenopathy is identified. The small and large bowel loops are normal caliber. There is diverticulosis of the descending and sigmoid colon but no evidence of acute diverticulitis. No pelvic lymphadenopathy is identified. The bladder and prostate are unremarkable. There are fat-containing inguinal hernias bilaterally. The bony structures appear nonacute. IMPRESSION: 1. Decrease in size of left lobe liver mass when compared to exam from 05/02/2022. No new abdominal or pelvic masses or lymphadenopathy is detected. 2. Uncomplicated diverticulosis. Dictated by: Dictated on workstation # [id number]
--- NOTE | 2022-07-08 17:29 | Diagnostic Imaging Report ---
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 Patient with history of skin cancer. EXAMS: 1: MRI of the brain performed without and with 20 cc of Clariscan IV contrast. Sequences include axial DWI, ADC map, coronal gradient echo, axial FLAIR, axial T1, axial T2, axial T1 post IV contrast whole brain, coronal T1 fat-sat post IV contrast whole brain, and sagittal T1 fat-sat post IV contrast whole brain. COMPARISON: MRI of the brain with and without contrast dated 05/05/2022. FINDINGS: There is interval development of a 9 mm nodular area of enhancement involving the high parasagittal left frontal lobe region with minimal adjacent parenchymal edema. There is interval development of a 6 mm nodular area of enhancement involving the high posterior right frontal lobe region of the vertex, which may be cortical or extra-axial intracranial. It is difficult to determine if there is increased T2 signal involving the adjacent parenchyma or volume averaging of the nodular lesion. There is interval development of an 8 mm x 6 mm area of enhancement involving the high parasagittal left parietal lobe postcentral gyrus region with a small amount of adjacent parenchymal edema. There is interval development of an 8 mm nodular area of enhancement involving the high parasagittal right parietal lobe postcentral gyrus region with small amount of adjacent parenchymal edema. There is interval development of an 8 mm nodular area of enhancement involving the anterior right frontal lobe with a small amount of adjacent parenchymal edema. These findings are concerning for metastatic disease. There are no other areas of intracranial enhancing masses. Stable 6 mm hypoenhancing area in the right side of the pituitary gland. There is no brain herniation or midline shift. There is no intracranial hemorrhage. No hydrocephalus. The [place] vascular structures show no gross abnormality as visualized. Stable likely lymph node involving the left posterior upper aspect of the neck subcutaneous fat region. The extracranial soft tissues, skull, and orbits are unremarkable. There is mild mucosal thickening involving both maxillary sinuses and ethmoid sinus. There is minimal fluid involving the left mastoid air cells. IMPRESSION: 1: There is interval development of five enhancing intracranial masses involving both cerebral hemispheres concerning for metastatic disease. There is a small amount of adjacent parenchymal edema associated with these areas. These are described above. 2: Stable 6 mm hypoenhancing area involving the right side of the pituitary gland, which may represent a microadenoma. 3: The remainder of this exam shows no significant interval change compared to the prior study of comparison. Dictated by: Dictated on workstation # [id number]
== END ==
LOC: RAD 14:06
PROVIDERS: ATTEND Internal Medicine Hematology & Oncology
DX: C76.1 Malignant neoplasm of thorax (principal); R91.8 Other nonspecific abnormal finding of lung field
CPT/HCPCS: 70553; 71260; 74177

== ENCOUNTER 2022-07-25 07:42 | Outpatient (RCR) | payer MEDICARE, MEDICAID ==
[2022-07-18 09:15] LABS: BASOPHILS # (AUTO) 0.1 10^3/uL (0.0-0.1); BASOPHILS % (AUTO) 1 % (0-10); EOSINOPHILS # (AUTO) 0.4 10^3/uL (0.0-0.3); EOSINOPHILS % (AUTO) 6 % (0-10); HEMATOCRIT 39 % (40-54); HEMOGLOBIN 13.8 g/dL (13.3-17.7); LYMPHOCYTES # (AUTO) 1.9 10^3/uL (1.0-4.0); LYMPHOCYTES % (AUTO) 26 % (12-44); MEAN CORPUSCULAR HEMOGLOBIN 32 pg (25-34); MEAN CORPUSCULAR HGB CONC 36 g/dL (32-36); MEAN CORPUSCULAR VOLUME 90 fL (80-99); MEAN PLATELET VOLUME 9.1 fL (9.0-12.2); MONOCYTES # (AUTO) 0.8 10^3/uL (0.0-1.0); MONOCYTES % (AUTO) 10 % (0-12); NEUTROPHILS # (AUTO) 4.2 10^3/uL (1.8-7.8); NEUTROPHILS % (AUTO) 57 % (42-75); PLATELET COUNT 291 10^3/uL (130-400); WHITE BLOOD COUNT 7.4 10^3/uL (4.3-11.0)
[2022-07-18 09:47] LABS: ALBUMIN 3.7 GM/DL (3.2-4.5); BILIRUBIN,TOTAL 0.5 MG/DL (0.1-1.0); CALCIUM 9.3 MG/DL (8.5-10.1); CREATININE SERUM 0.82 MG/DL (0.60-1.30)
[2022-07-18 10:09] LABS: FREE T4 (FREE THYROXINE) 1.55 NG/DL (0.70-1.48)
[~2022-07-25 07:42] MED LIST changes: -CATHETER FLUSH 10 ML SYR IV PRN; +DEXAMETHASONE SODIUM PHOSPHATE IV SCH; -GADOTERATE 0.5 MMOL/ML (CLARISCAN) 20 ML VIAL IV ONE; +HEParin (CENTRAL IV FLUSH) 500 UNIT/5 ML SYR IV PRN; -HOLD METFORMIN - RECEIVED CONTRAST 20 ML VIAL IV SCH; -IOHEXOL 350 MG/ML 100 ML (OMNIPAQUE 350) VIAL IV ONE; +IPILIMUMAB IV SCH; +NIVOLUMAB IV SCH; -NS 100 ML (IVPB) BAG IV ONE; +NS IV 1000 ML (CANCER CTR) IV SCH; +NS IV SCH; +diphenhydrAMINE 25 MG TAB (BENADRYL) PO SCH
== END 2022-07-26 | disposition home or self-care (01) ==
LOC: ONC 07:42
PROVIDERS: ATTEND Internal Medicine Hematology & Oncology
DX: Z51.0 Encounter for antineoplastic radiation therapy (principal); C76.1 Malignant neoplasm of thorax; C78.00 Secondary malignant neoplasm of unspecified lung; C78.7 Secondary malignant neoplasm of liver and intrahepatic bile duct; C79.31 Secondary malignant neoplasm of brain
CPT/HCPCS: 36415; 77300; 77301; 77334; 77338; 77370; 77372; 77470; 80053; 84439; 84443; 85025; 96360; 96413; 96417; 99213

== ENCOUNTER 2022-08-11 09:15 | Outpatient (RCR) | payer MEDICARE, MEDICAID ==
[~2022-08-11 09:15] MED LIST changes: -DEXAMETHASONE SODIUM PHOSPHATE IV SCH; -HEParin (CENTRAL IV FLUSH) 500 UNIT/5 ML SYR IV PRN; -IPILIMUMAB IV SCH; -NIVOLUMAB IV SCH; -NS IV 1000 ML (CANCER CTR) IV SCH; -NS IV SCH; -diphenhydrAMINE 25 MG TAB (BENADRYL) PO SCH
[2022-08-11 09:43] LABS: BASOPHILS # (AUTO) 0.1 10^3/uL (0.0-0.1); BASOPHILS % (AUTO) 1 % (0-10); EOSINOPHILS # (AUTO) 0.5 10^3/uL (0.0-0.3); EOSINOPHILS % (AUTO) 8 % (0-10); HEMATOCRIT 39 % (40-54); HEMOGLOBIN 13.5 g/dL (13.3-17.7); LYMPHOCYTES % (AUTO) 30 % (12-44); MEAN CORPUSCULAR HEMOGLOBIN 32 pg (25-34); MEAN CORPUSCULAR HGB CONC 35 g/dL (32-36); MEAN CORPUSCULAR VOLUME 91 fL (80-99); MEAN PLATELET VOLUME 8.9 fL (9.0-12.2); MONOCYTES # (AUTO) 0.6 10^3/uL (0.0-1.0); MONOCYTES % (AUTO) 9 % (0-12); NEUTROPHILS # (AUTO) 3.4 10^3/uL (1.8-7.8); NEUTROPHILS % (AUTO) 53 % (42-75); PLATELET COUNT 269 10^3/uL (130-400); WHITE BLOOD COUNT 6.6 10^3/uL (4.3-11.0)
[2022-08-11 10:02] LABS: ALANINE AMINOTRANSFERASE < 6 U/L (0-55); ALBUMIN 3.5 GM/DL (3.2-4.5); ALKALINE PHOSPHATASE 59 U/L (40-136); BILIRUBIN,TOTAL 0.5 MG/DL (0.1-1.0); BUN/CREATININE RATIO 13; CALCIUM 9.7 MG/DL (8.5-10.1); CARBON DIOXIDE 25 MMOL/L (21-32); CHLORIDE 102 MMOL/L (98-107); CREATININE SERUM 0.78 MG/DL (0.60-1.30); GFR ESTIMATED 97; GLUCOSE 123 MG/DL (70-105); POTASSIUM 4.5 MMOL/L (3.6-5.0); SODIUM 136 MMOL/L (135-145); TOTAL PROTEIN 6.6 GM/DL (6.4-8.2)
[2022-08-11 10:23] LABS: FREE T4 (FREE THYROXINE) 0.86 NG/DL (0.70-1.48)
== END 2022-08-26 | disposition home or self-care (01) ==
LOC: ONC 09:15
PROVIDERS: ATTEND Internal Medicine Hematology & Oncology
DX: C76.1 Malignant neoplasm of thorax (principal); C78.00 Secondary malignant neoplasm of unspecified lung; C78.7 Secondary malignant neoplasm of liver and intrahepatic bile duct; C79.31 Secondary malignant neoplasm of brain
CPT/HCPCS: 80053; 84439; 84443; 85025

== ENCOUNTER 2022-09-15 09:41 | Outpatient (RCR) | payer MEDICARE, MEDICAID ==
[2022-09-01 09:33] LABS: BASOPHILS # (AUTO) 0.1 10^3/uL (0.0-0.1); BASOPHILS % (AUTO) 1 % (0-10); EOSINOPHILS # (AUTO) 0.4 10^3/uL (0.0-0.3); EOSINOPHILS % (AUTO) 5 % (0-10); HEMATOCRIT 37 % (40-54); HEMOGLOBIN 13.3 g/dL (13.3-17.7); LYMPHOCYTES # (AUTO) 1.8 10^3/uL (1.0-4.0); LYMPHOCYTES % (AUTO) 23 % (12-44); MEAN CORPUSCULAR HEMOGLOBIN 32 pg (25-34); MEAN CORPUSCULAR HGB CONC 36 g/dL (32-36); MEAN CORPUSCULAR VOLUME 90 fL (80-99); MEAN PLATELET VOLUME 9.1 fL (9.0-12.2); MONOCYTES # (AUTO) 0.7 10^3/uL (0.0-1.0); MONOCYTES % (AUTO) 9 % (0-12); NEUTROPHILS # (AUTO) 4.8 10^3/uL (1.8-7.8); NEUTROPHILS % (AUTO) 62 % (42-75); PLATELET COUNT 222 10^3/uL (130-400); WHITE BLOOD COUNT 7.8 10^3/uL (4.3-11.0)
[2022-09-01 09:57] LABS: ALANINE AMINOTRANSFERASE < 6 U/L (0-55); ALBUMIN 3.5 GM/DL (3.2-4.5); ALKALINE PHOSPHATASE 53 U/L (40-136); BILIRUBIN,TOTAL 0.6 MG/DL (0.1-1.0); BUN/CREATININE RATIO 9; CALCIUM 8.3 MG/DL (8.5-10.1); CARBON DIOXIDE 23 MMOL/L (21-32); CHLORIDE 105 MMOL/L (98-107); CREATININE SERUM 0.74 MG/DL (0.60-1.30); GFR ESTIMATED 98; GLUCOSE 116 MG/DL (70-105); POTASSIUM 3.9 MMOL/L (3.6-5.0); SODIUM 135 MMOL/L (135-145); TOTAL PROTEIN 6.3 GM/DL (6.4-8.2)
[2022-09-01 10:18] LABS: FREE T4 (FREE THYROXINE) 0.91 NG/DL (0.70-1.48)
[~2022-09-15 09:41] MED LIST changes: +HEParin (CENTRAL IV FLUSH) 500 UNIT/5 ML SYR IV PRN; +NIVOLUMAB 480 MG in NS (IVPB) 100 ML IV SCH; +NS IV 1000 ML (CANCER CTR) IV SCH; +dexAMETHasone INJECTION 10 MG in NS (IVPB) 50 ML IV SCH; +diphenhydrAMINE 25 MG TAB (BENADRYL) PO SCH
== END 2022-09-25 | disposition home or self-care (01) ==
LOC: ONC 09:41
PROVIDERS: ATTEND Internal Medicine Hematology & Oncology
DX: Z51.11 Encounter for antineoplastic chemotherapy (principal); C76.1 Malignant neoplasm of thorax; C79.31 Secondary malignant neoplasm of brain; C78.7 Secondary malignant neoplasm of liver and intrahepatic bile duct; C78.00 Secondary malignant neoplasm of unspecified lung
CPT/HCPCS: 36415; 80053; 84439; 84443; 85025; 96360; 96375; 96413; 99213

== ENCOUNTER → 2022-09-26 | Outpatient (CLI) | payer MEDICARE, MEDICAID ==
[~2022-09-26] MED LIST changes: +GADOTERATE 0.5 MMOL/ML (CLARISCAN) 20 ML VIAL IV ONE; -HEParin (CENTRAL IV FLUSH) 500 UNIT/5 ML SYR IV PRN; +HOLD METFORMIN - RECEIVED CONTRAST 20 ML VIAL IV SCH; +IOHEXOL 350 MG/ML 100 ML (OMNIPAQUE 350) VIAL IV ONE; -NIVOLUMAB 480 MG in NS (IVPB) 100 ML IV SCH; +NS 100 ML (IVPB) BAG IV ONE; -NS IV 1000 ML (CANCER CTR) IV SCH; -dexAMETHasone INJECTION 10 MG in NS (IVPB) 50 ML IV SCH; -diphenhydrAMINE 25 MG TAB (BENADRYL) PO SCH
--- NOTE | 2022-09-26 09:10 | Diagnostic Imaging Report ---
PROCEDURE: CT chest, abdomen, and pelvis with contrast. TECHNIQUE: Multiple contiguous axial images were obtained through the chest, abdomen, and pelvis after the administration of intravenous contrast. Auto Exposure Controls were utilized during the CT exam to meet ALARA standards for radiation dose reduction. INDICATION: Followup cancer of the thorax. Correlation is made with prior CT from 07/08/2022. CT CHEST: No axillary lymphadenopathy is identified. No mediastinal or hilar lymphadenopathy is detected. No pericardial or pleural fluid is detected. There appears to be some increasing infiltrate or atelectasis in the left upper lobe when compared with prior exam. This obscures previously measured left upper lobe pulmonary nodule. The lingula and left lower lobe are without evidence of pulmonary nodules. There has been some development of infiltrate or atelectasis in the right perihilar region. No discrete pulmonary mass or nodule is detected. CT abdomen and pelvis: Previously noted low-attenuation mass left lobe of liver has decreased in size, now measuring 1.3 cm compared with 3.3 cm on prior. No new liver mass is identified. Gallbladder is unremarkable. Pancreas and spleen are unremarkable. No adrenal mass is detected. Kidneys are unremarkable. Aorta is nonaneurysmal. No central retroperitoneal or mesenteric lymphadenopathy is seen. There is diverticulosis of the descending and sigmoid colon. There is no ascites. Bladder is decompressed. Prostate is unremarkable. Fat-containing inguinal hernias are noted bilaterally. The bony structures are nonacute. IMPRESSION: 1. Previously noted bilateral pulmonary nodules are not well visualized on today's study. There is no thoracic lymphadenopathy. Patient has developed some infiltrate or atelectasis in the left upper lobe and right perihilar region since prior exam. 2. Decrease in size of left lobe liver mass. No new liver mass is detected. No abdominal or pelvic lymphadenopathy is detected. 3. Uncomplicated diverticulosis. 4. Bilateral fat-containing inguinal hernias. Dictated by: Dictated on workstation # [id number]
--- NOTE | 2022-09-26 09:43 | Diagnostic Imaging Report ---
CLINICAL INDICATION: Patient has history of brain cancer. Recheck. EXAM: MRI of the brain performed without and with 20 cc of Clariscan IV contrast. Multiplanar, multisequence imaging was obtained. COMPARISON: MRI of the brain with and without contrast dated 07/08/2022. FINDINGS: There is interval decreased size of a nodular enhancing mass in the anterior right frontal region which currently measures 4 mm compared to the prior study measured at 8 mm. There is interval decreased size of the nodular area of enhancement in the high parasagittal right parietal lobe which currently measures 4 mm compared to the prior study measured at 8 mm. There is interval decreased size of the nodular area of enhancement involving the high parasagittal left parietal lobe area which currently measures 3 mm compared to the prior study measured at 8 mm x 6 mm. There is interval decreased size of the nodular area of enhancement involving the right frontal lobe region which currently measures 6 mm compared to the prior study measured at 8 mm. There is interval decreased size of the nodular area of enhancement in the high posterior right frontal lobe region near the vertex which currently measures 3 mm compared to the prior study measured at 6 mm. There is interval decrease in the small amount of high T2 signal involving the right frontal lobe and bilateral parietal lobe nodular enhancing masses. Stable 9 mm hypoenhancing area within the pituitary gland. Microadenoma is suspected. Stable age-related brain parenchymal volume loss and chronic small vessel ischemic disease. There is no hydrocephalus, brain herniation, or midline shift. Basal cisterns are unremarkable. The [place] vascular structures show no gross abnormality as visualized. There is minimal mucosal thickening involving the ethmoid sinus. There is minimal fluid involving the left mastoid air cells. IMPRESSION: 1: There is interval decreased size of the five supratentorial, bilateral cerebral hemisphere, nodular masses related to metastatic disease. There is interval decrease in the T2 signal adjacent to the right frontal lobe and bilateral parietal lobe masses. 2: There are no enhancing masses seen. 3: Stable 9 mm hypoenhancing lesion involving the pituitary gland. Microadenoma. Dictated by: Dictated on workstation # [id number]
== END ==
LOC: RAD 08:07
PROVIDERS: ATTEND Internal Medicine Hematology & Oncology
DX: C76.1 Malignant neoplasm of thorax (principal); C79.31 Secondary malignant neoplasm of brain; D35.2 Benign neoplasm of pituitary gland; R91.8 Other nonspecific abnormal finding of lung field; K57.90 Diverticulosis of intestine, part unspecified, without perforation or abscess without bleeding; K40.20 Bilateral inguinal hernia, without obstruction or gangrene, not specified as recurrent; R16.0 Hepatomegaly, not elsewhere classified; G93.89 Other specified disorders of brain
CPT/HCPCS: 70553; 71260; 74177

== ENCOUNTER 2022-09-29 09:27 | Outpatient (RCR) | payer MEDICARE, MEDICAID ==
[~2022-09-29 09:27] MED LIST changes: -GADOTERATE 0.5 MMOL/ML (CLARISCAN) 20 ML VIAL IV ONE; +HEParin (CENTRAL IV FLUSH) 500 UNIT/5 ML SYR IV PRN; -HOLD METFORMIN - RECEIVED CONTRAST 20 ML VIAL IV SCH; -IOHEXOL 350 MG/ML 100 ML (OMNIPAQUE 350) VIAL IV ONE; +NIVOLUMAB 480 MG in NS (IVPB) 100 ML IV SCH; -NS 100 ML (IVPB) BAG IV ONE; +NS IV 1000 ML (CANCER CTR) IV SCH; +dexAMETHasone INJECTION 10 MG in NS (IVPB) 50 ML IV SCH; +diphenhydrAMINE 25 MG TAB (BENADRYL) PO SCH
[2022-09-29 10:16] LABS: BASOPHILS # (AUTO) 0.1 10^3/uL (0.0-0.1); BASOPHILS % (AUTO) 1 % (0-10); EOSINOPHILS # (AUTO) 0.3 10^3/uL (0.0-0.3); EOSINOPHILS % (AUTO) 5 % (0-10); HEMATOCRIT 40 % (40-54); HEMOGLOBIN 13.8 g/dL (13.3-17.7); LYMPHOCYTES # (AUTO) 2.5 10^3/uL (1.0-4.0); LYMPHOCYTES % (AUTO) 35 % (12-44); MEAN CORPUSCULAR HEMOGLOBIN 31 pg (25-34); MEAN CORPUSCULAR HGB CONC 35 g/dL (32-36); MEAN CORPUSCULAR VOLUME 91 fL (80-99); MEAN PLATELET VOLUME 9.3 fL (9.0-12.2); MONOCYTES # (AUTO) 0.8 10^3/uL (0.0-1.0); MONOCYTES % (AUTO) 11 % (0-12); NEUTROPHILS # (AUTO) 3.5 10^3/uL (1.8-7.8); NEUTROPHILS % (AUTO) 48 % (42-75); PLATELET COUNT 261 10^3/uL (130-400); WHITE BLOOD COUNT 7.2 10^3/uL (4.3-11.0)
[2022-09-29 10:41] LABS: ALANINE AMINOTRANSFERASE < 6 U/L (0-55); ALBUMIN 3.9 GM/DL (3.2-4.5); ALKALINE PHOSPHATASE 59 U/L (40-136); BILIRUBIN,TOTAL 1.2 MG/DL (0.1-1.0); BUN/CREATININE RATIO 9; CALCIUM 8.9 MG/DL (8.5-10.1); CARBON DIOXIDE 25 MMOL/L (21-32); CHLORIDE 101 MMOL/L (98-107); CREATININE SERUM 0.74 MG/DL (0.60-1.30); GFR ESTIMATED 98; GLUCOSE 119 MG/DL (70-105); POTASSIUM 3.9 MMOL/L (3.6-5.0); SODIUM 135 MMOL/L (135-145); TOTAL PROTEIN 6.4 GM/DL (6.4-8.2)
== END 2022-10-26 | disposition home or self-care (01) ==
LOC: ONC 09:27
PROVIDERS: ATTEND Internal Medicine Hematology & Oncology
DX: Z51.11 Encounter for antineoplastic chemotherapy (principal); C76.1 Malignant neoplasm of thorax; C79.31 Secondary malignant neoplasm of brain; C78.7 Secondary malignant neoplasm of liver and intrahepatic bile duct; Z79.899 Other long term (current) drug therapy
CPT/HCPCS: 36415; 80053; 84443; 85025; 96360; 96413

== ENCOUNTER 2022-11-24 08:13 | Outpatient (RCR) | payer MEDICARE, MEDICAID ==
[2022-10-27 11:48] LABS: BASOPHILS # (AUTO) 0.1 10^3/uL (0.0-0.1); BASOPHILS % (AUTO) 1 % (0-10); EOSINOPHILS # (AUTO) 0.3 10^3/uL (0.0-0.3); EOSINOPHILS % (AUTO) 4 % (0-10); HEMATOCRIT 39 % (40-54); HEMOGLOBIN 13.5 g/dL (13.3-17.7); LYMPHOCYTES # (AUTO) 2.1 10^3/uL (1.0-4.0); LYMPHOCYTES % (AUTO) 28 % (12-44); MEAN CORPUSCULAR HEMOGLOBIN 32 pg (25-34); MEAN CORPUSCULAR HGB CONC 35 g/dL (32-36); MEAN CORPUSCULAR VOLUME 91 fL (80-99); MEAN PLATELET VOLUME 9.4 fL (9.0-12.2); MONOCYTES # (AUTO) 0.6 10^3/uL (0.0-1.0); MONOCYTES % (AUTO) 8 % (0-12); NEUTROPHILS # (AUTO) 4.3 10^3/uL (1.8-7.8); NEUTROPHILS % (AUTO) 59 % (42-75); PLATELET COUNT 246 10^3/uL (130-400); WHITE BLOOD COUNT 7.3 10^3/uL (4.3-11.0)
[2022-10-27 11:58] VITALS: BP 114/73
[2022-10-27 12:12] LABS: ALANINE AMINOTRANSFERASE < 6 U/L (0-55); ALBUMIN 3.8 GM/DL (3.2-4.5); ALKALINE PHOSPHATASE 55 U/L (40-136); BILIRUBIN,TOTAL 0.5 MG/DL (0.1-1.0); BUN/CREATININE RATIO 14; CALCIUM 9.1 MG/DL (8.5-10.1); CARBON DIOXIDE 22 MMOL/L (21-32); CHLORIDE 102 MMOL/L (98-107); CREATININE SERUM 0.77 MG/DL (0.60-1.30); GFR ESTIMATED 97; GLUCOSE 114 MG/DL (70-105); POTASSIUM 4.4 MMOL/L (3.6-5.0); SODIUM 133 MMOL/L (135-145); TOTAL PROTEIN 6.5 GM/DL (6.4-8.2)
[2022-10-27] MEDS: NS IV 1000 ML (CANCER CTR) IV SCH (12:18)
[2022-10-27] MEDS: NIVOLUMAB 480 MG in NS (IVPB) 100 ML IV SCH (12:19)
[~2022-11-24] VITALS: Ht 177.8 cm; Wt 103.9 kg
[~2022-11-24 08:13] MED LIST changes: -NIVOLUMAB 480 MG in NS (IVPB) 100 ML IV SCH; -NS IV 1000 ML (CANCER CTR) IV SCH; -dexAMETHasone INJECTION 10 MG in NS (IVPB) 50 ML IV SCH; -diphenhydrAMINE 25 MG TAB (BENADRYL) PO SCH
[2022-11-24 10:39] LABS: BASOPHILS # (AUTO) 0.1 10^3/uL (0.0-0.1); BASOPHILS % (AUTO) 1 % (0-10); EOSINOPHILS # (AUTO) 0.5 10^3/uL (0.0-0.3); EOSINOPHILS % (AUTO) 6 % (0-10); HEMATOCRIT 41 % (40-54); LYMPHOCYTES % (AUTO) 21 % (12-44); MEAN CORPUSCULAR HEMOGLOBIN 32 pg (25-34); MEAN CORPUSCULAR HGB CONC 34 g/dL (32-36); MEAN CORPUSCULAR VOLUME 93 fL (80-99); MEAN PLATELET VOLUME 9.7 fL (9.0-12.2); MONOCYTES # (AUTO) 0.9 10^3/uL (0.0-1.0); MONOCYTES % (AUTO) 10 % (0-12); NEUTROPHILS # (AUTO) 5.8 10^3/uL (1.8-7.8); NEUTROPHILS % (AUTO) 63 % (42-75); PLATELET COUNT 255 10^3/uL (130-400); WHITE BLOOD COUNT 9.3 10^3/uL (4.3-11.0)
[2022-11-24 10:50] LABS: CHLORIDE 104 MMOL/L (98-107); POTASSIUM 4.1 MMOL/L (3.6-5.0); SODIUM 135 MMOL/L (135-145)
[2022-11-24 10:51] LABS: CALCIUM 9.2 MG/DL (8.5-10.1)
[2022-11-24 10:52] LABS: GLUCOSE 109 MG/DL (70-105)
[2022-11-24 10:54] LABS: BILIRUBIN,TOTAL 0.8 MG/DL (0.1-1.0); CARBON DIOXIDE 22 MMOL/L (21-32)
[2022-11-24 10:56] LABS: ALKALINE PHOSPHATASE 59 U/L (40-136); CREATININE SERUM 0.85 MG/DL (0.60-1.30); GFR ESTIMATED 94
[2022-11-24 10:57] LABS: BUN/CREATININE RATIO 9
[2022-11-24 10:59] LABS: ALANINE AMINOTRANSFERASE < 6 U/L (0-55)
[2022-11-24 11:00] VITALS: BP 91/59
[2022-11-24] MEDS: NS IV 1000 ML (CANCER CTR) IV SCH (11:15)
[2022-11-24] MEDS: NIVOLUMAB 480 MG in NS (IVPB) 100 ML IV SCH (11:16)
== END 2022-11-25 | disposition home or self-care (01) ==
LOC: ONC 08:13
PROVIDERS: ATTEND Internal Medicine Hematology & Oncology
DX: Z51.11 Encounter for antineoplastic chemotherapy (principal); C76.1 Malignant neoplasm of thorax; C79.31 Secondary malignant neoplasm of brain; C78.7 Secondary malignant neoplasm of liver and intrahepatic bile duct; Z79.899 Other long term (current) drug therapy
CPT/HCPCS: 36415; 80053; 84443; 85025; 96360; 96413

== ENCOUNTER 2022-12-22 08:40 | Outpatient (RCR) | payer MEDICARE, MEDICAID ==
[~2022-12-22] VITALS: Ht 177.8 cm; Wt 104.1 kg
[~2022-12-22 08:40] MED LIST changes: -HEParin (CENTRAL IV FLUSH) 500 UNIT/5 ML SYR IV PRN
[2022-12-22] MEDS ORDERED: HEParin (CENTRAL IV FLUSH) 500 UNIT/5 ML SYR IV PRN (09:30)
[2022-12-22] MEDS ORDERED: NS IV 1000 ML (CANCER CTR) IV SCH (09:30)
[2022-12-22] MEDS ORDERED: NIVOLUMAB 480 MG in NS (IVPB) 100 ML 100 ML IV SCH (09:30)
[2022-12-22 10:46] VITALS: BP 103/68
[2022-12-22 10:52] LABS: BASOPHILS # (AUTO) 0.1 10^3/uL (0.0-0.1); BASOPHILS % (AUTO) 1 % (0-10); EOSINOPHILS # (AUTO) 0.4 10^3/uL (0.0-0.3); EOSINOPHILS % (AUTO) 5 % (0-10); HEMATOCRIT 38 % (40-54); HEMOGLOBIN 13.4 g/dL (13.3-17.7); LYMPHOCYTES % (AUTO) 26 % (12-44); MEAN CORPUSCULAR HEMOGLOBIN 32 pg (25-34); MEAN CORPUSCULAR HGB CONC 35 g/dL (32-36); MEAN CORPUSCULAR VOLUME 90 fL (80-99); MEAN PLATELET VOLUME 9.4 fL (9.0-12.2); MONOCYTES # (AUTO) 0.6 10^3/uL (0.0-1.0); MONOCYTES % (AUTO) 8 % (0-12); NEUTROPHILS # (AUTO) 4.5 10^3/uL (1.8-7.8); NEUTROPHILS % (AUTO) 59 % (42-75); PLATELET COUNT 263 10^3/uL (130-400); WHITE BLOOD COUNT 7.6 10^3/uL (4.3-11.0)
[2022-12-22 11:15] LABS: ALANINE AMINOTRANSFERASE < 6 U/L (0-55); ALBUMIN 3.8 GM/DL (3.2-4.5); ALKALINE PHOSPHATASE 57 U/L (40-136); BILIRUBIN,TOTAL 0.5 MG/DL (0.1-1.0); BUN/CREATININE RATIO 15; CALCIUM 9.3 MG/DL (8.5-10.1); CARBON DIOXIDE 18 MMOL/L (21-32); CHLORIDE 104 MMOL/L (98-107); CREATININE SERUM 0.82 MG/DL (0.60-1.30); GFR ESTIMATED 95; GLUCOSE 147 MG/DL (70-105); POTASSIUM 4.1 MMOL/L (3.6-5.0); SODIUM 133 MMOL/L (135-145); TOTAL PROTEIN 6.7 GM/DL (6.4-8.2)
== END 2022-12-26 | disposition home or self-care (01) ==
LOC: ONC 08:40
PROVIDERS: ATTEND Internal Medicine Hematology & Oncology
DX: Z51.11 Encounter for antineoplastic chemotherapy (principal); C76.1 Malignant neoplasm of thorax; C79.31 Secondary malignant neoplasm of brain; C78.7 Secondary malignant neoplasm of liver and intrahepatic bile duct; Z79.899 Other long term (current) drug therapy
CPT/HCPCS: 36415; 80053; 84443; 85025; 96413

== ENCOUNTER → 2022-12-30 | Outpatient (CLI) | payer MEDICARE, MEDICAID ==
[~2022-12-30] MED LIST changes: +CATHETER FLUSH 10 ML SYR IV PRN; +GADOTERATE 0.5 MMOL/ML (CLARISCAN) 20 ML VIAL IV ONE; +HOLD METFORMIN - RECEIVED CONTRAST 20 ML VIAL IV SCH; +IOHEXOL 350 MG/ML 100 ML (OMNIPAQUE 350) VIAL IV ONE; +NS 100 ML (IVPB) BAG IV ONE
--- NOTE | 2022-12-30 11:32 | Diagnostic Imaging Report ---
PROCEDURE: CT chest, abdomen, and pelvis with contrast. TECHNIQUE: Multiple contiguous axial images were obtained through the chest, abdomen, and pelvis after the administration of intravenous contrast. Auto Exposure Controls were utilized during the CT exam to meet ALARA standards for radiation dose reduction. INDICATION: Melanoma of the left chest wall, followup. Correlation is made with prior CT from 09/26/2022. CT CHEST: No axillary lymphadenopathy is identified. No definite pathologically enlarged lymph nodes in the mediastinum or [place]ia [place] are detected. There is no pericardial or pleural fluid identified. The area of parenchymal consolidation in the left upper lobe, extending towards the left hilum appears to be slightly increased when compared with the exam from September. The right perihilar infiltrate or atelectasis is stable. No discrete mass or pulmonary nodule is identified. There is a moderate-sized hiatal hernia. CT abdomen and pelvis: The previously noted low-attenuation lesion left lobe of the liver continues to decrease in size, now measuring approximately 1.2 cm compared with 1.3 cm on prior. No new liver mass is detected. Gallbladder is unremarkable. There is no biliary duct dilatation. The pancreas and spleen are unremarkable. Adrenal glands and kidneys are unremarkable. Aorta is calcified but nonaneurysmal. No central retroperitoneal or mesenteric lymphadenopathy is identified. No iliac or inguinal lymphadenopathy is identified. The small and large bowel loops are normal caliber. There are diverticula involving the descending and sigmoid colon but no evidence of acute diverticulitis. There is no ascites. Bladder and prostate are unremarkable. There are bilateral fat-containing inguinal hernias. No osteolytic or blastic lesions are detected. IMPRESSION: 1. No evidence of thoracic, abdominal or pelvic lymphadenopathy or metastatic disease. 2. Right perihilar and left upper lobe infiltrate or atelectasis. Opacities in left upper lobe do appear to be slightly increased since exam from September. 3. Hiatal hernia. 4. Uncomplicated diverticulosis. 5. Bilateral fat-containing inguinal hernias. Dictated by: Dictated on workstation # [id number]
--- NOTE | 2022-12-30 11:38 | Diagnostic Imaging Report ---
PROCEDURE: MR imaging of the brain with and without contrast. TECHNIQUE: Multiplanar, multisequence MR imaging of the brain was performed with and without contrast. INDICATION: Follow-up on scan and lung cancer. Enhancing brain lesions follow-up. COMPARISON: MRI of the brain on 09/26/2022. Findings: No acute infarct. No acute or chronic hemorrhage. The ventricles are normal in size and configuration without hydrocephalus. Mild scattered FLAIR hyperintensities in the subcortical and periventricular deep white matter, a nonspecific finding, most commonly seen with chronic small vessel ischemic disease. Interval resolution of the enhancing brain lesions. No new or enlarging lesions identified. Unchanged 9 mm hypoenhancing lesion within the pituitary gland. The scalp and calvarium are normal. The pituitary and sella are normal. No Chiari malformation. The visualized upper cervical spine is normal. The visualized orbits and globes are normal. The visualized paranasal sinuses are clear. The mastoid air cells are clear. Normal flow voids within the vertebral, basilar, and internal carotid arteries indicating patency. IMPRESSION: Interval resolution of the enhancing brain lesions. No new or enlarging lesions identified. Dictated by: Dictated on workstation # [id number]
== END ==
LOC: RAD 09:53
PROVIDERS: ATTEND Internal Medicine Hematology & Oncology
DX: C79.31 Secondary malignant neoplasm of brain (principal); C43.59 Malignant melanoma of other part of trunk; C34.90 Malignant neoplasm of unspecified part of unspecified bronchus or lung; R91.8 Other nonspecific abnormal finding of lung field; J98.11 Atelectasis; K44.9 Diaphragmatic hernia without obstruction or gangrene; K57.90 Diverticulosis of intestine, part unspecified, without perforation or abscess without bleeding; K40.90 Unilateral inguinal hernia, without obstruction or gangrene, not specified as recurrent
CPT/HCPCS: 70553; 71260; 74177

== ENCOUNTER 2023-01-19 07:33 | Outpatient (RCR) | payer MEDICARE, MEDICAID ==
[~2023-01-19 07:33] MED LIST changes: -CATHETER FLUSH 10 ML SYR IV PRN; -GADOTERATE 0.5 MMOL/ML (CLARISCAN) 20 ML VIAL IV ONE; -HOLD METFORMIN - RECEIVED CONTRAST 20 ML VIAL IV SCH; -IOHEXOL 350 MG/ML 100 ML (OMNIPAQUE 350) VIAL IV ONE; -NS 100 ML (IVPB) BAG IV ONE
[2023-01-19] MEDS ORDERED: NS IV 1000 ML (CANCER CTR) IV SCH (08:21)
[2023-01-19] MEDS ORDERED: HEParin (CENTRAL IV FLUSH) 500 UNIT/5 ML SYR IV PRN (08:21)
[2023-01-19] MEDS ORDERED: NIVOLUMAB 480 MG in NS (IVPB) 100 ML 100 ML IV SCH (08:21)
[2023-01-19 11:04] LABS: BASOPHILS # (AUTO) 0.1 10^3/uL (0.0-0.1); BASOPHILS % (AUTO) 1 % (0-10); EOSINOPHILS # (AUTO) 0.4 10^3/uL (0.0-0.3); EOSINOPHILS % (AUTO) 5 % (0-10); HEMATOCRIT 42 % (40-54); HEMOGLOBIN 14.6 g/dL (13.3-17.7); LYMPHOCYTES % (AUTO) 23 % (12-44); MEAN CORPUSCULAR HEMOGLOBIN 31 pg (25-34); MEAN CORPUSCULAR HGB CONC 35 g/dL (32-36); MEAN CORPUSCULAR VOLUME 91 fL (80-99); MONOCYTES # (AUTO) 0.7 10^3/uL (0.0-1.0); MONOCYTES % (AUTO) 8 % (0-12); NEUTROPHILS # (AUTO) 5.3 10^3/uL (1.8-7.8); NEUTROPHILS % (AUTO) 63 % (42-75); PLATELET COUNT 228 10^3/uL (130-400); WHITE BLOOD COUNT 8.5 10^3/uL (4.3-11.0)
[2023-01-19 11:28] LABS: ALANINE AMINOTRANSFERASE < 6 U/L (0-55); ALBUMIN 3.9 GM/DL (3.2-4.5); ALKALINE PHOSPHATASE 51 U/L (40-136); BILIRUBIN,TOTAL 0.8 MG/DL (0.1-1.0); BUN/CREATININE RATIO 8; CALCIUM 8.6 MG/DL (8.5-10.1); CARBON DIOXIDE 21 MMOL/L (21-32); CHLORIDE 102 MMOL/L (98-107); CREATININE SERUM 0.76 MG/DL (0.60-1.30); GFR ESTIMATED 97; GLUCOSE 123 MG/DL (70-105); POTASSIUM 3.9 MMOL/L (3.6-5.0); SODIUM 132 MMOL/L (135-145); TOTAL PROTEIN 6.7 GM/DL (6.4-8.2)
[2023-01-19 11:33] VITALS: BP 118/80
== END 2023-01-26 | disposition home or self-care (01) ==
LOC: ONC 07:33
PROVIDERS: ATTEND Internal Medicine Hematology & Oncology
DX: Z51.11 Encounter for antineoplastic chemotherapy (principal); C76.1 Malignant neoplasm of thorax; C79.31 Secondary malignant neoplasm of brain; C78.7 Secondary malignant neoplasm of liver and intrahepatic bile duct; Z79.899 Other long term (current) drug therapy
CPT/HCPCS: 80053; 84443; 85025; 96413; G0463; 36415; 99214

== ENCOUNTER 2023-02-16 08:07 | Outpatient (RCR) | payer MEDICARE, MEDICAID ==
[~2023-02-16 08:07] MED LIST changes: +HEParin (CENTRAL IV FLUSH) 500 UNIT/5 ML SYR IV PRN; +NIVOLUMAB 480 MG in NS (IVPB) 100 ML 100 ML IV SCH; +NS IV 1000 ML (CANCER CTR) IV SCH
[2023-02-16 11:18] VITALS: BP 116/85
[2023-02-16 11:25] LABS: BASOPHILS # (AUTO) 0.1 10^3/uL (0.0-0.1); BASOPHILS % (AUTO) 1 % (0-10); EOSINOPHILS # (AUTO) 0.4 10^3/uL (0.0-0.3); EOSINOPHILS % (AUTO) 6 % (0-10); HEMATOCRIT 40 % (40-54); HEMOGLOBIN 13.9 g/dL (13.3-17.7); LYMPHOCYTES # (AUTO) 1.8 10^3/uL (1.0-4.0); LYMPHOCYTES % (AUTO) 29 % (12-44); MEAN CORPUSCULAR HEMOGLOBIN 31 pg (25-34); MEAN CORPUSCULAR HGB CONC 35 g/dL (32-36); MEAN CORPUSCULAR VOLUME 90 fL (80-99); MEAN PLATELET VOLUME 9.2 fL (9.0-12.2); MONOCYTES # (AUTO) 0.6 10^3/uL (0.0-1.0); MONOCYTES % (AUTO) 9 % (0-12); NEUTROPHILS # (AUTO) 3.5 10^3/uL (1.8-7.8); NEUTROPHILS % (AUTO) 56 % (42-75); PLATELET COUNT 229 10^3/uL (130-400); WHITE BLOOD COUNT 6.3 10^3/uL (4.3-11.0)
[2023-02-16 11:46] LABS: ALANINE AMINOTRANSFERASE < 6 U/L (0-55); ALBUMIN 3.8 GM/DL (3.2-4.5); ALKALINE PHOSPHATASE 55 U/L (40-136); BILIRUBIN,TOTAL 0.6 MG/DL (0.1-1.0); BUN/CREATININE RATIO 14; CALCIUM 8.5 MG/DL (8.5-10.1); CARBON DIOXIDE 24 MMOL/L (21-32); CHLORIDE 105 MMOL/L (98-107); GFR ESTIMATED 100; GLUCOSE 107 MG/DL (70-105); SODIUM 135 MMOL/L (135-145); TOTAL PROTEIN 6.4 GM/DL (6.4-8.2)
== END 2023-02-25 | disposition home or self-care (01) ==
LOC: ONC 08:07
PROVIDERS: ATTEND Internal Medicine Hematology & Oncology
DX: Z51.11 Encounter for antineoplastic chemotherapy (principal); C76.1 Malignant neoplasm of thorax; C79.31 Secondary malignant neoplasm of brain; C78.7 Secondary malignant neoplasm of liver and intrahepatic bile duct
CPT/HCPCS: 80053; 85025; 96413; G0463; 36415; 99214

== ENCOUNTER 2023-03-16 08:31 | Outpatient (RCR) | payer MEDICARE, MEDICAID ==
[~2023-03-16] VITALS: Ht 177.8 cm; Wt 101.4 kg
[2023-03-16 10:20] LABS: BASOPHILS # (AUTO) 0.1 10^3/uL (0.0-0.1); BASOPHILS % (AUTO) 1 % (0-10); EOSINOPHILS # (AUTO) 0.5 10^3/uL (0.0-0.3); EOSINOPHILS % (AUTO) 6 % (0-10); HEMATOCRIT 40 % (40-54); HEMOGLOBIN 13.9 g/dL (13.3-17.7); LYMPHOCYTES # (AUTO) 1.8 10^3/uL (1.0-4.0); LYMPHOCYTES % (AUTO) 23 % (12-44); MEAN CORPUSCULAR HEMOGLOBIN 31 pg (25-34); MEAN CORPUSCULAR HGB CONC 35 g/dL (32-36); MEAN CORPUSCULAR VOLUME 91 fL (80-99); MONOCYTES # (AUTO) 0.6 10^3/uL (0.0-1.0); MONOCYTES % (AUTO) 8 % (0-12); NEUTROPHILS # (AUTO) 4.7 10^3/uL (1.8-7.8); NEUTROPHILS % (AUTO) 62 % (42-75); PLATELET COUNT 251 10^3/uL (130-400); WHITE BLOOD COUNT 7.6 10^3/uL (4.3-11.0)
[2023-03-16 10:38] LABS: ALANINE AMINOTRANSFERASE < 6 U/L (0-55); ALBUMIN 3.9 GM/DL (3.2-4.5); ALKALINE PHOSPHATASE 56 U/L (40-136); BILIRUBIN,TOTAL 0.9 MG/DL (0.1-1.0); BUN/CREATININE RATIO 9; CALCIUM 8.7 MG/DL (8.5-10.1); CARBON DIOXIDE 21 MMOL/L (21-32); CHLORIDE 104 MMOL/L (98-107); CREATININE SERUM 0.75 MG/DL (0.60-1.30); GFR ESTIMATED 98; GLUCOSE 166 MG/DL (70-105); POTASSIUM 3.9 MMOL/L (3.6-5.0); SODIUM 135 MMOL/L (135-145); TOTAL PROTEIN 6.9 GM/DL (6.4-8.2)
[2023-03-16 11:10] VITALS: BP 115/72
== END 2023-03-28 | disposition still patient (30) ==
LOC: ONC 08:31
PROVIDERS: ATTEND Internal Medicine Hematology & Oncology
DX: Z51.11 Encounter for antineoplastic chemotherapy (principal); C76.1 Malignant neoplasm of thorax; C79.31 Secondary malignant neoplasm of brain; C78.7 Secondary malignant neoplasm of liver and intrahepatic bile duct
CPT/HCPCS: 80053; 84443; 85025; 96413; G0463; 36415; 99214

== ENCOUNTER → 2023-04-06 | Outpatient (CLI) | payer MEDICARE, MEDICAID ==
[~2023-04-06] MED LIST changes: +CATHETER FLUSH 10 ML SYR IV PRN; +GADOTERATE 0.5 MMOL/ML (CLARISCAN) 20 ML VIAL IV ONE; -HEParin (CENTRAL IV FLUSH) 500 UNIT/5 ML SYR IV PRN; +HOLD METFORMIN - RECEIVED CONTRAST 20 ML VIAL IV SCH; +IOHEXOL 350 MG/ML 100 ML (OMNIPAQUE 350) VIAL IV ONE; -NIVOLUMAB 480 MG in NS (IVPB) 100 ML 100 ML IV SCH; +NS 100 ML (IVPB) BAG IV ONE; -NS IV 1000 ML (CANCER CTR) IV SCH
--- NOTE | 2023-04-06 12:56 | Diagnostic Imaging Report ---
PROCEDURE: CT chest, abdomen, and pelvis with contrast. TECHNIQUE: Multiple contiguous axial images were obtained through the chest, abdomen, and pelvis after the administration of intravenous contrast. Auto Exposure Controls were utilized during the CT exam to meet ALARA standards for radiation dose reduction. INDICATION: Patient has history of melanoma. Compared with CT chest, abdomen and pelvis 12/30/2022 CHEST: Abnormal parenchymal opacity right perihilar where there is nonspecific infiltrate, carole-bronchovascular thickening and juxta fissural density unchanged from the comparison study and also not significantly changed from an exam of 09/26/2022. Similar persistent irregular parenchymal opacity in the left upper lobe is also unchanged. No new focal pulmonary abnormality. There is no enlarged or pathological thoracic lymph nodes. No effusion. The aorta is nonaneurysmal. Chest wall and axilla normal. There is coronary atherosclerosis. No thoracic aneurysm is a moderate retrocardiac hiatal hernia as a chronic finding. Abdomen pelvis: The left lobe liver low attenuating focus segment 2 is 9 mm most recently 12 mm and back in September was 13 mm. No new liver lesion. No biliary dilatation or gallstone. Spleen and splenule stable. The adrenals are negative. The pancreas unremarkable. No hydronephrosis, no solid or cystic renal mass. No bowel obstruction. No focal infiltration. There is no ascites. No abdominal pelvic adenopathy. There is no suspicious lytic or sclerotic bony lesion identified at today's studies. An old T12 vertebral body endplate wedge deformity and degenerative changes to the lumbar spine stable and chronic. IMPRESSION: CHEST: Left upper lobe and right perihilar irregular pleural-parenchymal pulmonary opacities unchanged from priors. No new focal pulmonary lesion and no thoracic adenopathy. Abdomen pelvis: No findings of abdominal pelvic metastatic disease or acute findings. Dictated by: Dictated on workstation # [id number]
== END ==
LOC: RAD 08:14
PROVIDERS: ATTEND Internal Medicine Hematology & Oncology
DX: C79.31 Secondary malignant neoplasm of brain (principal); C80.1 Malignant (primary) neoplasm, unspecified; R91.1 Solitary pulmonary nodule
CPT/HCPCS: 71260; 74177

== ENCOUNTER 2023-04-13 08:01 | Outpatient (RCR) | payer MEDICARE, MEDICAID ==
[~2023-04-13 08:01] MED LIST changes: -CATHETER FLUSH 10 ML SYR IV PRN; -GADOTERATE 0.5 MMOL/ML (CLARISCAN) 20 ML VIAL IV ONE; -HOLD METFORMIN - RECEIVED CONTRAST 20 ML VIAL IV SCH; -IOHEXOL 350 MG/ML 100 ML (OMNIPAQUE 350) VIAL IV ONE; -NS 100 ML (IVPB) BAG IV ONE
[2023-04-13] MEDS ORDERED: NIVOLUMAB 480 MG in NS (IVPB) 100 ML 100 ML IV SCH (08:55)
[2023-04-13] MEDS ORDERED: NS IV 1000 ML (CANCER CTR) IV SCH (08:55)
[2023-04-13] MEDS ORDERED: HEParin (CENTRAL IV FLUSH) 500 UNIT/5 ML SYR IV PRN (08:55)
[2023-04-13 10:05] LABS: BASOPHILS # (AUTO) 0.1 10^3/uL (0.0-0.1); BASOPHILS % (AUTO) 1 % (0-10); EOSINOPHILS # (AUTO) 0.6 10^3/uL (0.0-0.3); EOSINOPHILS % (AUTO) 8 % (0-10); HEMATOCRIT 40 % (40-54); HEMOGLOBIN 13.7 g/dL (13.3-17.7); LYMPHOCYTES # (AUTO) 1.6 10^3/uL (1.0-4.0); LYMPHOCYTES % (AUTO) 22 % (12-44); MEAN CORPUSCULAR HEMOGLOBIN 32 pg (25-34); MEAN CORPUSCULAR HGB CONC 34 g/dL (32-36); MEAN CORPUSCULAR VOLUME 93 fL (80-99); MEAN PLATELET VOLUME 9.1 fL (9.0-12.2); MONOCYTES # (AUTO) 0.6 10^3/uL (0.0-1.0); MONOCYTES % (AUTO) 9 % (0-12); NEUTROPHILS # (AUTO) 4.3 10^3/uL (1.8-7.8); NEUTROPHILS % (AUTO) 60 % (42-75); PLATELET COUNT 227 10^3/uL (130-400); WHITE BLOOD COUNT 7.2 10^3/uL (4.3-11.0)
[2023-04-13 10:25] LABS: ALANINE AMINOTRANSFERASE < 6 U/L (0-55); ALBUMIN 4.1 GM/DL (3.2-4.5); ALKALINE PHOSPHATASE 51 U/L (40-136); BILIRUBIN,TOTAL 1.2 MG/DL (0.1-1.0); BUN/CREATININE RATIO 13; CARBON DIOXIDE 22 MMOL/L (21-32); CHLORIDE 103 MMOL/L (98-107); CREATININE SERUM 0.77 MG/DL (0.60-1.30); GFR ESTIMATED 97; GLUCOSE 115 MG/DL (70-105); POTASSIUM 4.2 MMOL/L (3.6-5.0); SODIUM 134 MMOL/L (135-145); TOTAL PROTEIN 7.1 GM/DL (6.4-8.2)
[2023-04-13 10:48] VITALS: BP 113/66
== END 2023-04-27 | disposition home or self-care (01) ==
LOC: ONC 08:01
PROVIDERS: ATTEND Internal Medicine Hematology & Oncology
DX: Z51.11 Encounter for antineoplastic chemotherapy (principal); C76.1 Malignant neoplasm of thorax; C79.31 Secondary malignant neoplasm of brain; Z79.899 Other long term (current) drug therapy
CPT/HCPCS: 80053; 84443; 85025; 96413; G0463; 36415; 99214